=== PATIENT | female | born 1975 | race Caucasian/White ===

== ENCOUNTER 2023-03-10 15:04 | Outpatient (AMB) | payer OTHER, SELFPAY ==
--- NOTE | 2023-03-10 15:05 | A.OFFVIS_ITS ---
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 Pt was previously seen by Dr Alejandro Stinson and more recently by Dr Mcdonald. She had been having 4-5 migraine days per week, however this decreased to 1-2 migraine days per week after she underwent as series of lidocaine trigger point injections. Although the trigger point injections were helpful, they were painful and pt is hesitant to try naything potentially painful again at this point. She would like to discuss other tx options. Headache questionnaire: Age/time of onset? 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 Preceding causes? Initially no known causes. Previous work-up? None Typical headache characteristics: Prodrome symptoms? Unaware Aura? Twice has seen a vision snake. Location, quality, characteristics? Start as right neck pain or brain fog (now more left sided). Changes into throbbing/aching/stabbing pains- depending on severity. Pain intensity? without tx- severe Associated symptoms? photophobia, phonophobia, osmophobia, nausea, brain fog, ac tivity intolerance Focal weakness, Parethesias, Autonomic s/s? watery eyes Postdrome? unsure Triggers? certain perfumes, foods, alcohol, not sleeping enough, weather changes, too hot, hot flashes Any positional, valsalva, exertional, sexual activity triggers? none Menstrual triggers? right before but other times as well Time of day? morning 10-11am Duration? Always tx's- 1 to several hrs- depending on timing of taking her triptan. Frequency? Prior to the trigger point injections- 4-5 migraine dyas per week and now (4 weeks after trigger point injections)- 1-2 migraine days per week. How does headache impact your life? sometimes has to miss work. 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 Current acute medication use/interventions: Naratriptan 2.5mg- takes 2 hrs to take effect. Previous acute medication use: Different triptans- unsure which. Current preventative medication use: None Previous preventative medication use: Topamax- not tolerated. Amitriptyline- Ineffective. Aimovig- initially helpful but then ineffective. Mag and B2- ineffective. Non-pharmacological interventions: Rest. Allay lamp. Massage. History of musculoskeletal disorders or injury or concussion/head injury? Had a sledding accident in college- not tx'd or eval'd. History of mood disorder? anxiety- has lorazepam prn (uses rarely) History of sleep disorder? sleeps medium - HST through [place]. May wake up and cannot fall back asleep. Some snoring History of respiratory disease? none History of CV disease? HLD History of coagulopathy? none History of endocrine or metabolic disease? none History of seizure? none History of GI disorder? can be prone to constipation Other? Head tic- head moves side ways- noticed more after a parotidectomy (2019). She does tend to tilt her head to the left. Denies diplopia. Family planning? none Family history of migraine or other headache disorder? unaware [facility] (Updated 03/10/23 @ 15:11 by JOSE Leos) H/O parotidectomy Family History (Updated 03/10/23 @ 15:12 by JOSE Leos) Mother Hx of migraines Father Heart disease Social History Alcohol intake: never Patient Tobacco Use Status: Never used Tobacco Use of substances other than those prescribed or required for medical reasons: Yes Substance Use Type: Marijuana Review of Systems Const Details: See scanned ROS form Physical Exam Vital Signs: Last Vital Signs Pulse 59 03/10/23 15:13 BP 122/72 03/10/23 15:13 Pulse Ox 99 03/10/23 15:13 Oxygen Delivery Method Room Air 03/10/23 15:13 Const Orientation/consciousness: patient oriented x3 HEENT Other: No palpable scalp tenderness. Head: Yes normocephalic Resp Effort & Inspection: normal respiratory effort and able to speak in complete sentences Neuro Other: Left head tilt- able to correct. Bilateral cervical and posterior cervical tightness. General: patient oriented x3 Cranial nerves: Yes CN's II-XII intact bilaterally Cognition (Neuro): normal cognition Gait exam (Neuro): Normal gait present Motor exam (neuro): 5/5 motor strength present throughout Deep tendon reflexes (DTR's): Right triceps reflex intensity grade: 2+, Left triceps reflex intensity grade: 2+, Rt Biceps (C5, C6): 2+, Left biceps reflex intensity grade: 2+, Right brachioradialis reflex intensity grade: 2+, Left brachioradialis reflex intensity grade: 2+, Right patellar reflex intensity grade: 2+ and Left patellar reflex intensity grade: 2+ Coordination: [id number] test normal, tandem gait normal and Romberg test negative Pupils: Normal pupillary reactivity/response: bilateral Psych Appearance: grossly normal Mental Status: mental status grossly normal Speech and movement: Normal speech and movement present Affect: normal affect Attitude: cooperative Thought process: Normal thought process present Assessment & Plan Assessment & Plan (1) Migraine without aura: Code(s): G43.009 - Migraine without aura, not intractable, without status migrainosus (2) Cervical dystonia: Code(s): G24.3 - Spasmodic torticollis Plan Start PT for cervical dystonia/head tic s/s. Future considerations- cervical/head imaging, muscle relaxer, botox- note pt is very needle adverse at this time. For overall headache management: Discussed importance of good self-care, including but not limited to maintaining a healthy diet, adequate fluid intake, adequate sleep, and engaging in regular physical activity. For headache triggers: Track headaches, especially after any treatment regimen changes. Migraine [employer] is one of many headache tracking apps. Continue light sensitivity strategies, such as green light therapy. For acute headache treatment: Discussed importance of taking acute medications at the first sign of headache, however stressed importance of avoiding acute medication overuse (especially with combined headache medications). Trial Sumatriptan 100mg tab, 1/2 - 1 tab (50-100mg) at onset of headache, may repeat in 2 hours. Max of 2 tabs (200mg) per 24 hours. May adjunct with OTC Tylenol 650mg q 4 hours, Ibuprofen 600mg q 6 hours, or Naproxen 440mg q 12 hrs prn. Previous acute migraine medication trials: Naratriptan 2.5mg- takes 2 hrs to take effect. Acute migraine medication contraindications: None at this time For headache prevention medication: Consider non-pharmacological interventions, such as Cefaly neuromodulation devices Previous migraine prevention medication trials: Topamax- not tolerated. Amitriptyline- Ineffective. Aimovig- initially helpful but then ineffective. Mag and B2- ineffective. Migraine prevention medication contraindications: None absolute tx's at this time. However, pt is not interested in trying Nerivio. Future considerations- Botox- if pt's injection aversion subsides. Pt to follow-up in 3 months or sooner prn. Orders: Orders PT Evaluation and Treatment 03/10/23 G24.3 - Spasmodic torticollis, G43.009 - Migraine without aura, not intractable, without status migrainosus Medications: New sumatriptan succinate (0.5 - 1 x 100 mg) 50 - 100 mg orally at onset of headache, may repeat in 2 hrs PRN; max 2 tabs per day or 4 tabs/week (may take with Naproxen) 30 days 12 tabs 6RF migraine headache Coding Level of Care Code New Pt Level 4 (56210) Diagnoses Migraine without aura G43.009 Cervical dystonia G24.3
[2023-03-10 15:13] VITALS: BP 122/72; PULSE 59; O2SAT 99
== END 2023-03-10 16:44 | disposition home or self-care (01) ==
PROVIDERS: Visit Provider Nurse Practitioner Family
DX: G43.009 Migraine without aura, not intractable, without status migrainosus (principal); G24.3 Spasmodic torticollis
CPT/HCPCS: 99204

== ENCOUNTER → 2023-03-10 15:04 | Outpatient (BNVA) | payer OTHER, SELFPAY | PROVIDERS: Visit Provider Nurse Practitioner Family | DX: G24.3 Spasmodic torticollis (principal); G43.109 Migraine with aura, not intractable, without status migrainosus | CPT/HCPCS: 99202 ==

== ENCOUNTER 2023-08-18 08:45 | Outpatient (AMB) | payer OTHER, SELFPAY ==
--- NOTE | 2023-08-18 08:46 | A.OFFVIS_ITS ---
Intake Intake Visit Reasons: follow up-Confirmed Intake Note: Patient presents for follow up. I'm still having migraines Allergies nitrofurantoin [From Macrobid] Allergy (Unknown, Verified 08/18/23 08:51) Unknown Penicillins Allergy (Unknown, Verified 08/18/23 08:51) Unknown Medication List - Last Reconciled 08/18/23 by JEFFREY Das black cohosh 20 mg PO DAILY cholecalciferol (vitamin D3) 125 mcg PO DAILY naratriptan 2.5 mg PO Q4H PRN omega 5-okl-cul-fish oil 1,000 mg (120 mg-180 mg) (Fish Oil) 1 cap PO BID rizatriptan 10 mg PO Q2-4H PRN HPI HPI Comments History of Present Illness Details 47-year-old presents for f/u visit for f ollow-up of migraines and sleep apnea. Since the last visit, we received her home sleep study results from [facility] which revealed mild sleep apnea. Patient would like to try a mandibular device for treatment of sleep apnea. Does snore and has some sleep maintenance difficulties. Sleep can also be interrupted by hot flashes. Pt has completed trigger point injections at Dr. Mcdonald's office. Patient continues to have a high burden of migraine attacks per month. Patient would like to discuss options to reduce her migraine attack burden, as well as to reduce the impact of migraine attacks on overall quality of life- such as the need to limit out of home activities to reduce trigger risks. Since the last visit, tried sumatriptan, however it caused significant worsening nausea. Since has tried naratriptan, which is tolerated well but has slow onset of action and very effective. Then started rizatriptan, which is more effective that naratriptan, however not as effective if unable to take at the 1st sign. She is noticing less lateral head tilt and head/neck tics. Baseline headache characteristics: Aura- twice had had visual aura of seeing a snake. Migraine- starts as right or left neck pain or brain fog, which changes into throbbing/aching/stabbing pains, a/w photophobia, phonophobia, osmophobia, nausea, brain fog, activity intolerance, watery eyes Triggers include: certain perfumes, foods, alcohol, not sleeping enough, weather changes, too hot, hot flashes Current number of typical migraine days per month: 15-20 days per month Average painfulness of these migraines: mod-severe Current number of non-migraine headache days per month: n/a Average painfulness of these headaches: n/a PFSH Surgical History H/O parotidectomy Family History Mother Hx of migraines Father Heart disease Social History Alcohol intake: never Patient Tobacco Use Status: Never used Tobacco Substance Use Type: Marijuana Physical Exam Const General: cooperative and no acute distress Orientation/consciousness: patient oriented x3 Resp Effort & Inspection: normal respiratory effort and able to speak in complete sentences Neuro Other: Left head tilt- decreased today, still able to self-correct. Bilateral cervical and posterior cervical tightness. General: patient oriented x3 Cranial nerves: Yes CN's II-XII intact bilaterally Cognition (Neuro): normal cognition Psych Appearance: grossly normal Mental Status: mental status grossly normal Speech and movement: Clear speech present Affect: normal affect Attitude: cooperative Assessment & Plan Assessment & Plan (1) Chronic migraine without aura: Code(s): G43.709 - Chronic migraine without aura, not intractable, without status migrainosus (2) Mild obstructive sleep apnea: Comment: 02/19/2023, HST: AHI 5 per hour, O2 arabella 80%, average O2 sat 92%. 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 Reviewed simple strategies to address nocturnal hot flashes- cotton sheets/pajamas etc. For cervical dystonia/head tic s/s: Monitor clinically. Future considerations- cervical/head imaging, muscle relaxer, botox. ? For overall headache management: Continue to optimize good self-care, including but not limited to maintaining a healthy diet, adequate fluid intake, adequate sleep, and engaging in regular physical activity. Continue to track headaches. Continue light sensitivity strategies, such as green light therapy. ? For acute headache treatment: Continue rizatriptan 10 mg p.r.n. May use naratriptan p.r.n. Trial Nurtec ODT 75 mg q.d. as needed, as her triptans are not always fully effective. Acute migraine medication contraindications: Sumatriptan caused significant nausea. ? For headache prevention medication: Start propranolol 10 mg p.o. b.i.d.- this may also help hot flashes and anxiety/stress induced palpitations. Start Botox 155 units IM Q 12 weeks. Previous migraine prevention medication trials: Topamax- not tolerated. Amitriptyline- Ineffective. Aimovig- initially helpful but then ineffective. Mag and B2- ineffective. Migraine prevention medication contraindications: None absolute tx's at this time. However, pt is not interested in trying Nerivio. Future considerations- Botox- if pt's injection aversion subsides. ? Pt to follow-up in 3 months or sooner prn. [facility], insurance required a trial of Zolmitriptan as well. Pt did try Zomig x's 3- and it was not tolerated and ineffective. Medications: New propranolol 10 mg PO BID 60 tabs 3RF 30 days rimegepant (Nurtec ODT) 75 mg PO ONCE PRN 16 tabs 3RF migraine headache 30 days MDD 1 tab onabotulinumtoxinA (Botox) inject 155 units IM across forehead, scalp, and neck 200 units IM ONCE 1 ea 3RF 12 weeks G43.709 - Chronic migraine without aura, not intractable, without status migrainosus zolmitriptan (Zomig) do not exceed 2 doses per 24 hrs 5 mg PO Q2-4H PRN 12 tabs 1RF migraine headache 30 days Coding Level of Care Code Est Pt Level 4 (50488) Diagnoses Chronic migraine without aura G43.709 Mild obstructive sleep apnea G47.33 Cervical dystonia G24.3 Migraine with aura G43.109
== END 2023-08-18 09:46 | disposition home or self-care (01) ==
PROVIDERS: PCP Nurse Practitioner Primary Care; Visit Provider Nurse Practitioner Family
DX: G43.709 Chronic migraine without aura, not intractable, without status migrainosus (principal); G47.33 Obstructive sleep apnea (adult) (pediatric); G24.3 Spasmodic torticollis; G43.109 Migraine with aura, not intractable, without status migrainosus
CPT/HCPCS: 99214

== ENCOUNTER → 2023-08-18 08:45 | Outpatient (BNVA) | payer OTHER, SELFPAY | PROVIDERS: PCP Nurse Practitioner Primary Care; Visit Provider Nurse Practitioner Family ==

== ENCOUNTER 2023-10-07 08:50 | Outpatient (AMB) | payer OTHER, SELFPAY ==
--- NOTE | 2023-10-07 08:58 | A.OFFVIS_ITS ---
Intake Vital Signs 10/07/23 09:01 BP 146/82 H Blood Pressure Location Rt brachial Position Sitting Respiration 16 Pulse 73 Pulse Source Pulse Oximeter Pulse Oximetry (%) 99 Oxygen Delivery Method Room Air Intake Visit Reasons: Botox - first Intake Note: Pt presents for Botox injections. Target Protection Specialist Required: No Allergies nitrofurantoin [From Macrobid] Allergy (Unknown, Verified 10/07/23 08:59) Unknown Penicillins Allergy (Unknown, Verified 10/07/23 08:59) Unknown Medication List - Last Reconciled 10/07/23 by Goldie Corona MD black cohosh 20 mg PO DAILY cholecalciferol (vitamin D3) 125 mcg PO DAILY naratriptan 2.5 mg PO Q4H PRN omega 5-wht-ivl-fish oil 1,000 mg (120 mg-180 mg) (Fish Oil) 1 cap PO BID onabotulinumtoxinA (Botox) 200 units IM ONCE 12 weeks rimegepant (Nurtec ODT) 75 mg PO ONCE PRN 30 days MDD 1 tab rizatriptan 10 mg PO Q2-4H PRN HPI HPI Comments History of Present Illness Details ? 47y/o female comes for treatment of migraines with botox. ??? Most frequent reported adverse reactions following injection of botox for chronic migraine include neck pain (9%), headache(5%), eyelid ptosis(4%), migraine(4%), muscular weakness(4%), musculuskeletal stiffness(4%), bronchitis(3%), injection site pain (3%), musculoskeletal pain(3%), myalgia(3%), facial paresis(2%), HTN(2%) and muscle spasms(2%) were discussed in detail. ??? Botulinum toxin typeA 200units Lot no [id number] expiration November 2025 was diluted with 4 cc of normal saline . ??? Muscles injected- ??? Frontalis 4 sites ??? Procerus 1 site ??? Scarifier Operator- 2 sites ??? Temporalis- 8 sites ? Cervical paraspinals- 4 sites- 5 units each ??? Trapezius- 6 sites- 10 units each ??? Right splenius 40 units ??? Total use- 195units ??? [facility] H/O parotidectomy Family History Mother Hx of migraines Father Heart disease Social History Alcohol intake: never Patient Tobacco Use Status: Never used Tobacco Substance Use Type: Marijuana Physical Exam Vital Signs: Last Vital Signs Pulse 73 10/07/23 09:01 Resp 16 10/07/23 09:01 BP 146/82 H 10/07/23 09:01 Pulse Ox 99 10/07/23 09:01 Oxygen Delivery Method Room Air 10/07/23 09:01 Const General: cooperative and no acute distress Orientation/consciousness: patient oriented x3 Resp Effort & Inspection: normal respiratory effort and able to speak in complete sentences Neuro Other: Left head tilt- decreased today, still able to self-correct. Bilateral cervical and posterior cervical tightness. General: patient oriented x3 Cranial nerves: Yes CN's II-XII intact bilaterally Cognition (Neuro): normal cognition Psych Appearance: grossly normal Mental Status: mental status grossly normal Speech and movement: Clear speech present Affect: normal affect Attitude: cooperative Office Procedures Botulinum toxin Injection 92207 - Migraine Procedure code (CPT) selection complete Office Meds onabotulinumtoxinA 200 unit solution for injection Performing Provider: Goldie Corona MD Performing Location: [facility] Administered by: Goldie Corona MD on 10/07/23 11:53 Dose Route Admin Location Dispensed Lot Number Expiration Date [facility] [employer] 195 unit IM 200 units [id number] 11/18/25 0627-3632-16 [employer]/BOTOX Comments: see hpi Assessment & Plan Assessment & Plan (1) Chronic migraine without aura: Code(s): G43.709 - Chronic migraine without aura, not intractable, without status migrainosus (2) Cervical dystonia: 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
[2023-10-07 09:01] VITALS: BP 146/82; PULSE 73; RESP 16; O2SAT 99
== END 2023-10-07 09:24 | disposition home or self-care (01) ==
PROVIDERS: PCP Nurse Practitioner Primary Care; Visit Provider Psychiatry & Neurology Neurology
DX: G43.709 Chronic migraine without aura, not intractable, without status migrainosus (principal)
CPT/HCPCS: 64615

== ENCOUNTER → 2023-10-07 08:50 | Outpatient (BNVA) | payer OTHER, SELFPAY | PROVIDERS: PCP Nurse Practitioner Primary Care; Visit Provider Psychiatry & Neurology Neurology | DX: G24.3 Spasmodic torticollis (principal); G43.709 Chronic migraine without aura, not intractable, without status migrainosus; Z79.899 Other long term (current) drug therapy | CPT/HCPCS: 64615; 99211; J0585 ==

== ENCOUNTER 2023-11-17 10:22 | Outpatient (AMB) | payer OTHER, SELFPAY ==
--- NOTE | 2023-11-17 10:26 | MHC.OFFVIS ---
Vital Signs 11/17/23 10:32 BP 106/82 Blood Pressure Location Rt brachial Position Sitting Pulse 78 Pulse Source Pulse Oximeter Pulse Oximetry (%) 97 Oxygen Delivery Method Room Air Intake Visit Reasons: 3 mo f/u - LVM w/add Intake Note: Patient presents for 3 month follow up. Allergies nitrofurantoin [From Macrobid] Allergy (Unknown, Verified 11/17/23 10:31) Unknown Penicillins Allergy (Unknown, Verified 11/17/23 10:31) Unknown Medication List - Last Reconciled 11/17/23 by JEFFREY aDs black cohosh 20 mg PO DAILY cholecalciferol (vitamin D3) 125 mcg PO DAILY naratriptan 2.5 mg PO Q4H PRN omega 5-emd-ayz-fish oil 1,000 mg (120 mg-180 mg) (Fish Oil) 1 cap PO BID onabotulinumtoxinA (Botox) 200 units IM ONCE 12 weeks rimegepant (Nurtec ODT) 75 mg PO ONCE PRN 30 days MDD 1 tab rizatriptan 10 mg PO Q2-4H PRN HPI Comments Details: 48-yr-old female presents for f/u visit. Pt denies any significant interval medical changes. Pt notes increase personal life/stress. She had been having a sustained skin rash- hives. She now believes this was a reaction to dissolvable sutures in her shoulder s/p lipoma removal. She has rec'd mandibular device, but has not tried it. She is nervous about trying to set it up and use it at night. In past 3 months, she had 7-9 migraine days. She started Botox for migraine, which she tolerated well. States it was better tolerated than the trigger point injections. She likes the Nurtec, but it can take 2 hrs to take effect. If she feels a headache coming on, and takes it at very 1st sign. Has not tried taking w/ her triptan. She is consciously trying to maintain neutral head position. PFSH Surgical History H/O parotidectomy Family History Mother Hx of migraines Father Heart disease Social History (Reviewed 11/17/23 @ 10:32 by LENNY Leos Alcohol intake: never Patient Tobacco Use Status: Never used Tobacco Substance Use Type: Marijuana Physical Exam Vital Signs: Last Vital Signs Pulse 78 11/17/23 10:32 BP 106/82 11/17/23 10:32 Pulse Ox 97 11/17/23 10:32 Oxygen Delivery Method Room Air 11/17/23 10:32 Const General: cooperative and no acute distress Orientation/consciousness: patient oriented x3 Resp Effort & Inspection: normal respiratory effort and able to speak in complete sentences Neuro General: patient oriented x3 Cranial nerves: Yes CN's II-XII intact bilaterally Cognition (Neuro): normal cognition Psych Appearance: grossly normal Mental Status: mental status grossly normal Speech and movement: Normal speech and movement present Affect: normal affect Attitude: cooperative Assessment & Plan Assessment & Plan (1) Chronic migraine without aura: Code(s): G43.709 - Chronic migraine without aura, not intractable, without status migrainosus Category: Medical (2) Migraine with aura: Comment: Twice has had aura Code(s): G43.109 - Migraine with aura, not intractable, without status migrainosus Category: Medical (3) Mild obstructive sleep apnea: Comment: 02/19/2023, HST: AHI 5 per hour, O2 arabella 80%, average O2 sat 92%. 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 Try using it during waking hrs to assess tolerance. ? For cervical dystonia/head tic s/s: Improved. Monitor clinically. Future considerations- cervical/head imaging, muscle relaxer, botox. ? For overall headache management: Continue to optimize good self-care, including but not limited to maintaining a healthy diet, adequate fluid intake, adequate sleep, and engaging in regular physical activity. Continue to track headaches. Continue light sensitivity strategies, such as green light therapy. Consider trying neuromodulation devices- Nerivio. Warming facial migraine tx device.? For acute headache treatment: Continue rizatriptan 10 mg p.r.n. May use naratriptan p.r.n. Continue Nurtec ODT 75 mg q.d. as needed, as her triptans are not always fully effective. May take w/ triptan or NSAID. Acute migraine medication contraindications: Sumatriptan caused significant nausea. Zomig- ineffective and not tolerated. ? For headache prevention medication: Again, start propranolol 10 mg p.o. b.i.d.- this may also help hot flashes and anxiety/stress induced palpitations. Continue Botox 155 units IM Q 12 weeks, as pt tolertaed well and has had beneficial effect. Previous migraine prevention medication trials: Topamax- not tolerated. Amitriptyline- Ineffective. Aimovig- initially helpful but then ineffective. Mag and B2- ineffective. Migraine prevention medication contraindications: None absolute tx's at this time. Future considerations- Botox- if pt's injection aversion subsides. ? Pt to follow-up in 6 months or sooner prn. ? Coding Level of Care Code Est Pt Level 4 (42515) Diagnoses Chronic migraine without aura G43.709 Migraine with aura G43.109 Mild obstructive sleep apnea G47.33 Cervical dystonia G24.3
[2023-11-17 10:32] VITALS: BP 106/82; PULSE 78; O2SAT 97
== END 2023-11-17 11:49 | disposition home or self-care (01) ==
PROVIDERS: PCP Nurse Practitioner Primary Care; Visit Provider Nurse Practitioner Family
DX: G43.709 Chronic migraine without aura, not intractable, without status migrainosus (principal); G43.109 Migraine with aura, not intractable, without status migrainosus; G47.33 Obstructive sleep apnea (adult) (pediatric); G24.3 Spasmodic torticollis
CPT/HCPCS: 99214

== ENCOUNTER → 2023-11-17 10:22 | Outpatient (BNVA) | payer OTHER, SELFPAY | PROVIDERS: PCP Nurse Practitioner Primary Care; Visit Provider Nurse Practitioner Family ==

== ENCOUNTER 2024-01-08 09:26 | Outpatient (AMB) | payer OTHER, SELFPAY ==
--- NOTE | 2024-01-08 09:54 | A.OFFVIS_ITS ---
Vital Signs 01/08/24 09:55 Height 5 ft 3.5 in Weight 198 lb BMI 34.5 BP 106/62 Blood Pressure Location Rt brachial Position Sitting Respiration 16 Pulse 68 Pulse Source Palpation Intake Visit Reasons: BOTOX - LVM w/add Intake Note: Pt presents to the office for Botox injections. Nurse School Required: No Allergies nitrofurantoin [From Macrobid] Allergy (Unknown, Verified 01/08/24 09:55) Unknown Penicillins Allergy (Unknown, Verified 01/08/24 09:55) Unknown Medication List - Last Reconciled 01/08/24 by Goldie Corona MD black cohosh 20 mg PO DAILY cholecalciferol (vitamin D3) 125 mcg PO DAILY naratriptan 2.5 mg PO Q4H PRN 30 days omega 7-ogh-ehl-fish oil 1,000 mg (120 mg-180 mg) (Fish Oil) 1 cap PO BID onabotulinumtoxinA (Botox) 200 units IM ONCE 12 weeks rimegepant (Nurtec ODT) 75 mg PO ONCE PRN 30 days MDD 1 tab rizatriptan 10 mg PO Q2-4H PRN HPI Comments Details: ? 47y/o female comes for treatment of migraines with botox. ??? Most frequent reported adverse reactions following injection of botox for chronic migraine include neck pain (9%), headache(5%), eyelid ptosis(4%), migraine(4%), muscular weakness(4%), musculuskeletal stiffness(4%), bronchitis(3%), injection site pain (3%), musculoskeletal pain(3%), myalgia(3%), facial paresis(2%), HTN(2%) and muscle spasms(2%) were discussed in detail. ??? Botulinum toxin typeA 200units Lot no [id number] expiration January 2026 was diluted with 4 cc of normal saline . ??? Muscles injected- ??? Frontalis 4 sites ??? Procerus 1 site ??? Test Inspection Engineer- 2 sites ??? Temporalis- 8 sites ? Cervical paraspinals- 4 sites- 5 units each ??? Trapezius- 6 sites- 10 units each ??? Right splenius 40 units ??? Total use- 195units ??? Discarded-5units PFSH Surgical History H/O parotidectomy Family History Mother Hx of migraines Father Heart disease Social History Alcohol intake: never Patient Tobacco Use Status: Never used Tobacco Substance Use Type: Marijuana Physical Exam Vital Signs: Last Vital Signs Pulse 68 01/08/24 09:55 Resp 16 01/08/24 09:55 BP 106/62 01/08/24 09:55 BMI result Body Mass Index 34.5 Const General: cooperative and no acute distress Orientation/consciousness: patient oriented x3 Resp Effort & Inspection: normal respiratory effort and able to speak in complete sentences Neuro General: patient oriented x3 Cranial nerves: Yes CN's II-XII intact bilaterally Cognition (Neuro): normal cognition Psych Appearance: grossly normal Mental Status: mental status grossly normal Speech and movement: Normal speech and movement present Affect: normal affect Attitude: cooperative Office Procedures Botulinum toxin Injection 64103 - Migraine Procedure code (CPT) selection complete Office Meds onabotulinumtoxinA 200 unit solution for injection Performing Provider: Goldie Corona MD Performing Location: [facility] [place] [facility] Administered by: Goldie Corona MD on 01/08/24 10:21 Dose Route Admin Location Dispensed Lot Number Expiration Date [facility] Injection Molder 195 unit subcut 200 units [id number] 01/18/26 1019-3140-52 ALLERGAN/BOTOX Comments: see HPI Assessment & Plan Assessment & Plan (1) Chronic migraine without aura: Code(s): G43.709 - Chronic migraine without aura, not intractable, without status migrainosus Category: Medical (2) Cervical dystonia: Code(s): G24.3 - Spasmodic torticollis Category: Medical Plan Patient tolerated the procedure well she will call with any side effects Orders: Orders AMB Botulinum toxin Injection Today G43.709 - Chronic migraine without aura, not intractable, without status migrainosus Coding Level of Care Code Est Pt Level 1 (70092) Diagnoses Chronic migraine without aura G43.709 Cervical dystonia G24.3 CPT Codes Botox Injection - Botox 3: 56186 - Migraine ([id number])
[2024-01-08 09:55] VITALS: BP 106/62; PULSE 68; RESP 16; BMI 34.5
== END 2024-01-08 10:25 | disposition home or self-care (01) ==
PROVIDERS: PCP Nurse Practitioner Primary Care; Visit Provider Psychiatry & Neurology Neurology
DX: G43.709 Chronic migraine without aura, not intractable, without status migrainosus (principal)
CPT/HCPCS: 64615

== ENCOUNTER → 2024-01-08 09:26 | Outpatient (BNVA) | payer OTHER, SELFPAY | PROVIDERS: PCP Nurse Practitioner Primary Care; Visit Provider Psychiatry & Neurology Neurology | DX: G43.709 Chronic migraine without aura, not intractable, without status migrainosus (principal); G24.3 Spasmodic torticollis | CPT/HCPCS: 64615; 99211; J0585 ==

== ENCOUNTER 2024-04-20 12:54 | Outpatient (AMB) | payer OTHER, SELFPAY ==
[2024-04-20 13:01] VITALS: BP 110/60; PULSE 76; RESP 16
--- NOTE | 2024-04-20 13:01 | MHC.OFFVIS ---
Vital Signs 04/20/24 13:01 Height 5 ft 3.5 in BP 110/60 Blood Pressure Location Rt brachial Position Sitting Respiration 16 Pulse 76 Pulse Source Palpation Intake Visit Reasons: BOTOX Intake Note: Pt presents to the office for Botox injections for cervical dystonia. 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 Apprentice Required: No Allergies nitrofurantoin [From Macrobid] Allergy (Unknown, Verified 04/20/24 13:01) Unknown Penicillins Allergy (Unknown, Verified 04/20/24 13:01) Unknown Medication List - Last Reconciled 04/20/24 by Goldie Corona MD atorvastatin 40 mg PO BEDTIME [BI-EST HRT PO] black cohosh 20 mg PO DAILY cholecalciferol (vitamin D3) 125 mcg PO DAILY mecobalamin (vitamin B12) mcg PO DAILY PRN melatonin 3 mg PO BEDTIME PRN naratriptan 2.5 mg PO Q4H PRN 30 days onabotulinumtoxinA (Botox) 200 units IM ONCE 12 weeks propranolol 10 mg PO BID 30 days rimegepant (Nurtec ODT) 75 mg PO Q OTHER DAY 30 days MDD 1 tab HPI Comments Details: ? 47y/o female comes for treatment of migraines with botox. Patient noticed a significant decrease in her intensity and frequency of migraines with botox ??? Most frequent reported adverse reactions following injection of botox for chronic migraine include neck pain (9%), headache(5%), eyelid ptosis(4%), migraine(4%), muscular weakness(4%), musculuskeletal stiffness(4%), bronchitis(3%), injection site pain (3%), musculoskeletal pain(3%), myalgia(3%), facial paresis(2%), HTN(2%) and muscle spasms(2%) were discussed in detail. ??? Botulinum toxin typeA 200units Lot no [id number] expiration Jun 2026 was diluted with 4 cc of normal saline . ??? Muscles injected- ??? Frontalis 4 sites ??? Procerus 1 site ??? Airbrush Artist Technical- 2 sites ??? Temporalis- 8 sites ? Cervical paraspinals- 4 sites- 5 units each ??? Trapezius- 6 sites- 10 units each ??? Right splenius 40 units ??? Total use- 195units ??? Discarded-5units PFSH Surgical History H/O parotidectomy Family History Mother Hx of migraines Father Heart disease Social History Alcohol intake: never Patient Tobacco Use Status: Never used Tobacco Substance Use Type: Marijuana Physical Exam Vital Signs: Last Vital Signs Pulse 76 04/20/24 13:01 Resp 16 04/20/24 13:01 BP 110/60 04/20/24 13:01 Const General: cooperative and no acute distress Orientation/consciousness: patient oriented x3 Resp Effort & Inspection: normal respiratory effort and able to speak in complete sentences Neuro General: patient oriented x3 Cranial nerves: Yes CN's II-XII intact bilaterally Cognition (Neuro): normal cognition Psych Appearance: grossly normal Mental Status: mental status grossly normal Speech and movement: Normal speech and movement present Affect: normal affect Attitude: cooperative Office Procedures Botulinum toxin Injection 40138 - Migraine Procedure code (CPT) selection complete Office Meds onabotulinumtoxinA 200 unit solution for injection Performing Provider: Goldie Corona MD [place] [facility] [place] [facility] Administered by: Goldie Corona MD on 04/20/24 13:56 Dose Route Admin Location Dispensed Lot Number Expiration Date [facility] Information Systems Administrator 195 unit subcut 200 units [id number] 06/20/26 8644-3363-08 ALLERGAN/BOTOX Comments: see HPI Assessment & Plan Assessment & Plan (1) Chronic migraine without aura: Code(s): G43.709 - Chronic migraine without aura, not intractable, without status migrainosus Category: Medical Qualifiers: Status migrainosus presence: without status migrainosus Intractability: intractable Qualified Code(s): G43.719 - Chronic migraine without aura, intractable, without status migrainosus (2) Cervical dystonia: Code(s): G24.3 - Spasmodic torticollis Category: Medical Plan Patient tolerated the procedure well she will call with any side effects Increase propranolol 20mg bid Orders: Orders AMB Botulinum toxin Injection Today G43.719 - Chronic migraine without aura, intractable, without status migrainosus Medications: New onabotulinumtoxinA 200 units subcut ONCE 1 ea 0RF migraine G43.719 - Chronic migraine without aura, intractable, without status migrainosus Changed From propranolol 10 mg PO BID 30 days 60 tabs 3RF To propranolol 20 mg (2 x 10 mg) PO BID 30 days 120 tabs 3RF Coding Level of Care Code Est Pt Level 1 (94520) Diagnoses Intractable chronic migraine without aura and without status migrainosus G43.719 Status migrainosus presence: without status migrainosus Intractability: intractable Cervical dystonia G24.3 CPT Codes Botox Injection - Botox 3: 72100 - Migraine ([id number])
== END 2024-04-20 13:47 | disposition home or self-care (01) ==
PROVIDERS: PCP Nurse Practitioner Primary Care; Visit Provider Psychiatry & Neurology Neurology
DX: G43.719 Chronic migraine without aura, intractable, without status migrainosus (principal)
CPT/HCPCS: 64615

== ENCOUNTER → 2024-04-20 12:54 | Outpatient (BNVA) | payer OTHER, SELFPAY | PROVIDERS: PCP Nurse Practitioner Primary Care; Visit Provider Psychiatry & Neurology Neurology | DX: G43.719 Chronic migraine without aura, intractable, without status migrainosus (principal); G24.3 Spasmodic torticollis | CPT/HCPCS: 64615; 99211; J0585 ==

== ENCOUNTER 2024-05-26 15:01 | Outpatient (AMB) | payer OTHER, SELFPAY ==
--- NOTE | 2024-05-26 14:55 | A.OFFVIS_ITS ---
Vital Signs 05/26/24 14:59 Height 5 ft 4 in Intake Visit Reasons: Follow Up Night Coordinator Required: No Accompanied by: Self / Same As Patient Allergies nitrofurantoin [From Macrobid] Allergy (Unknown, Verified 05/26/24 14:55) Unknown Penicillins Allergy (Unknown, Verified 05/26/24 14:55) Unknown Medication List - Last Reconciled 05/26/24 by JEFFREY Das [Bioidentical HRT, pregnenolone (2.5mg), progesterone (20 mg), testosterone (0.5mg) PO .DAILY] atorvastatin 40 mg PO BEDTIME cholecalciferol (vitamin D3) 125 mcg PO DAILY erenumab-aooe (Aimovig Autoinjector) 140 mg subcut ONCE 30 days mecobalamin (vitamin B12) mcg PO DAILY melatonin 3 mg PO BEDTIME naratriptan 2.5 mg PO Q4H PRN 30 days onabotulinumtoxinA (Botox) 200 units IM ONCE 12 weeks propranolol 20 mg (2 x 10 mg) PO BID 30 days rimegepant (Nurtec ODT) 75 mg PO Q OTHER DAY PRN HPI Comments Details: 48-yr-old female presents for f/u televisit of migraine and GREG. Pt has completed 3 cycles of botox for cervical dystonia and migraine. She reports she had increased migraines over the summer, especially triggered by the humidity and heat, and felt quite miserable. At her last Botox appt, her propranolol was increased from 10mg bid to 20mg bid. Nurtec prn is helpful- though receives only a small supply per month. She is curious about other measures to help her reduce her migraine burden. She reports the following monthly migraine day: November- had a few migraines. January- Mar- , then at the end of Apr, had 6 days without a migraine. She has not tolerated the mandibular device for tx of GREG. PFSH Surgical History H/O parotidectomy Family History Mother Hx of migraines Father Heart disease Social History Alcohol intake: never Patient Tobacco Use Status: Never used Tobacco Substance Use Type: Marijuana Physical Exam Const General: cooperative and no acute distress Orientation/consciousness: patient oriented x3 Resp Effort & Inspection: normal respiratory effort and able to speak in complete sentences Neuro General: patient oriented x3 Cranial nerves: Yes CN's II-XII intact bilaterally Cognition (Neuro): normal cognition Psych Appearance: grossly normal Mental Status: mental status grossly normal Speech and movement: Normal speech and movement present Affect: normal affect Attitude: cooperative Telehealth Telehealth Telehealth Platform: [employer] Location of provider rendering services: practice address Location of patient: address on file Patient Identification confirmed using: Name, : Yes Telehealth method: video Patient verbally consented to treatment: Yes Patient verbally consented to billing insurance company: Yes Patient informed of any privacy concerns related to visit: Yes Minutes spent on Phone/Video with Pt.: 45 Assessment & Plan Assessment & Plan (1) Chronic migraine without aura: Code(s): G43.709 - Chronic migraine without aura, not intractable, without status migrainosus Category: Medical Qualifiers: Status migrainosus presence: without status migrainosus Intractability: intractable Qualified Code(s): G43.719 - Chronic migraine without aura, intractable, without status migrainosus (2) Migraine with aura: Comment: Twice has had aura Code(s): G43.109 - Migraine with aura, not intractable, without status migrainosus Category: Medical (3) Mild obstructive sleep apnea: Comment: 02/19/2023, HST: AHI 5 per hour, O2 arabella 80%, average O2 sat 92%. Code(s): G47.33 - Obstructive sleep apnea (adult) (pediatric) Category: Medical (4) Cervical dystonia: Code(s): G24.3 - Spasmodic torticollis Category: Medical Plan For GREG and sleep difficulties: Pt not tolerating Somnoguard- will monitor clinically for now as sleep apnea is mild. ? For cervical dystonia/head tic s/s: Improved. Continue Botox q 12 weeks. 0 ? For overall headache management: Continue to optimize good self-care, including but not limited to maintaining a healthy diet, adequate fluid intake, adequate sleep, and engaging in regular physical activity. Continue to track headaches. Continue light sensitivity strategies, such as green light therapy. Reviewed neuromodulation devices- pt will review and let us know if she is inter ested in trying. She will also check w/ her insurance to see if they are covered. Futiure considerations- complimentary integrative tx's. For acute headache treatment: Continue naratriptan p.r.n. Continue Nurtec ODT 75 mg q.d. as needed, as her triptans are not always fully effective. May take w/ triptan or NSAID. Acute migraine medication contraindications: Sumatriptan caused significant nausea. Zomig- ineffective and not tolerated. ? For headache prevention medication: Continue Propranolol 20 mg p.o. b.i.d.- would not increase further d/t BP low- norm. Continue Botox 155 units IM Q 12 weeks, as pt tolerated well and has had beneficial effect. Restart Aimovig 140mg sc q month, as it did previously have partial efficacy w/o adverse effect. Likely pt will have further reduction in migraine burden with combination of Botox and Aimovig. Previous migraine prevention medication trials: Topamax- not tolerated. Amitriptyline- Ineffective. Aimovig- initially helpful but then effect waned. Mag and B2- ineffective. Migraine prevention medication contraindications: None absolute tx's at this time. ? Pt to follow-up in 6 months or sooner prn. ? Medications: New erenumab-aooe (Aimovig Autoinjector) 140 mg subcut ONCE 30 days 1 mL 6RF Changed From rimegepant (Nurtec ODT) 75 mg PO Q OTHER DAY 30 days 15 tabs 6RF MDD 1 tab G43.009 - Migraine without aura, not intractable, without status migrainosus To rimegepant (Nurtec ODT) 75 mg PO Q OTHER DAY PRN G43.009 - Migraine without aura, not intractable, without status migrainosus Coding Level of Care Code Est Pt Level 4 (86453) Diagnoses Intractable chronic migraine without aura and without status migrainosus G43.719 Status migrainosus presence: without status migrainosus Intractability: intractable Migraine with aura G43.109 Mild obstructive sleep apnea G47.33 Cervical dystonia G24.3
== END 2024-05-26 16:11 | disposition home or self-care (01) ==
LOC: HO.HSMS 15:01
PROVIDERS: PCP Nurse Practitioner Primary Care; Visit Provider Nurse Practitioner Family
DX: G43.719 Chronic migraine without aura, intractable, without status migrainosus (principal); G43.109 Migraine with aura, not intractable, without status migrainosus; G47.33 Obstructive sleep apnea (adult) (pediatric); G24.3 Spasmodic torticollis
CPT/HCPCS: 99214

== ENCOUNTER → 2024-05-26 15:01 | Outpatient (BNVA) | payer OTHER, SELFPAY | PROVIDERS: PCP Nurse Practitioner Primary Care; Visit Provider Nurse Practitioner Family | DX: G43.009 Migraine without aura, not intractable, without status migrainosus (principal) ==

== ENCOUNTER 2024-07-22 10:36 | Outpatient (AMB) | payer OTHER, SELFPAY ==
--- NOTE | 2024-07-22 10:47 | A.OFFVIS_ITS ---
Vital Signs 07/22/24 10:47 Height 5 ft 4 in Intake Visit Reasons: BOTOX Intake Note: Patient presents for botox Allergies nitrofurantoin [From Macrobid] Allergy (Unknown, Verified 07/22/24 10:47) Unknown Penicillins Allergy (Unknown, Verified 07/22/24 10:47) Unknown Medication List - Last Reconciled 07/22/24 by Goldie Corona MD [Bioidentical HRT, pregnenolone (2.5mg), progesterone (20 mg), testosterone (0.5mg) PO .DAILY] atorvastatin 40 mg PO BEDTIME cholecalciferol (vitamin D3) 125 mcg PO DAILY erenumab-aooe (Aimovig Autoinjector) 140 mg subcut ONCE 30 days mecobalamin (vitamin B12) mcg PO DAILY melatonin 3 mg PO BEDTIME naratriptan 2.5 mg PO Q4H PRN 30 days onabotulinumtoxinA (Botox) 200 units IM ONCE 12 weeks propranolol 20 mg (2 x 10 mg) PO BID 30 days rimegepant (Nurtec ODT) 75 mg PO Q OTHER DAY PRN HPI Comments Details: ? 48y/o female comes for treatment of migraines with botox.This is her 4 th botox treatment. she has 5-14 migraine days a month. Patient noticed a significant decrease in her intensity and frequency of migraines with botox ??? Most frequent reported adverse reactions following injection of botox for chronic migraine include neck pain (9%), headache(5%), eyelid ptosis(4%), migraine(4%), muscular weakness(4%), musculuskeletal stiffness(4%), bronchitis(3%), injection site pain (3%), musculoskeletal pain(3%), myalgia(3%), facial paresis(2%), HTN(2%) and muscle spasms(2%) were discussed in detail. ??? Botulinum toxin typeA 200units Lot no [id number] expiration Aug 2026 was diluted with 4 cc of normal saline . ??? Muscles injected- ??? Frontalis 4 sites ??? Procerus 1 site ??? Education Program Coordinator- 2 sites ??? Temporalis- 8 sites ? Cervical paraspinals- 4 sites- 5 units each ??? Trapezius- 6 sites- 10 units each ??? Right splenius 40 units ??? Total use- 195units ??? Discarded-5units PFSH Surgical History H/O parotidectomy Family History Mother Hx of migraines Father Heart disease Social History Alcohol intake: never Patient Tobacco Use Status: Never used Tobacco Substance Use Type: Marijuana Physical Exam Const General: cooperative and no acute distress Orientation/consciousness: patient oriented x3 Resp Effort & Inspection: normal respiratory effort and able to speak in complete sentences Neuro General: patient oriented x3 Cranial nerves: Yes CN's II-XII intact bilaterally Cognition (Neuro): normal cognition Psych Appearance: grossly normal Mental Status: mental status grossly normal Speech and movement: Normal speech and movement present Affect: normal affect Attitude: cooperative Office Procedures Botulinum toxin Injection 81562 - Migraine Procedure code (CPT) selection complete Office Meds onabotulinumtoxinA 200 unit solution for injection Performing Provider: Goldie Corona MD [place] [facility] [place] [facility] Administered by: Goldie Corona MD on 07/22/24 15:33 Dose Route Admin Location Dispensed Lot Number Expiration Date 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 - Spasmodic torticollis Category: Medical Plan Patient tolerated the procedure well she will call with any side effects Orders: Orders AMB Botulinum toxin Injection Today G43.719 - Chronic migraine without aura, intractable, without status migrainosus Medications: New onabotulinumtoxinA 200 units subcut ONCE 1 ea 0RF migraine headache G43.719 - Chronic migraine without aura, intractable, without status migrainosus Coding Level of Care Code Est Pt Level 1 (04649) Diagnoses Intractable chronic migraine without aura and without status migrainosus G43.719 Status migrainosus presence: without status migrainosus Intractability: intractable Cervical dystonia G24.3 CPT Codes Botox Injection - Botox 3: 17807 - Migraine ([id number])
== END 2024-07-22 11:03 | disposition home or self-care (01) ==
PROVIDERS: PCP Nurse Practitioner Primary Care; Visit Provider Psychiatry & Neurology Neurology
DX: G43.719 Chronic migraine without aura, intractable, without status migrainosus (principal)
CPT/HCPCS: 64615

== ENCOUNTER → 2024-07-22 10:36 | Outpatient (BNVA) | payer OTHER, SELFPAY | PROVIDERS: PCP Nurse Practitioner Primary Care; Visit Provider Psychiatry & Neurology Neurology | DX: G43.719 Chronic migraine without aura, intractable, without status migrainosus (principal); G24.3 Spasmodic torticollis | CPT/HCPCS: 64615; 99211; J0585 ==

== ENCOUNTER 2024-10-13 10:38 | Outpatient (AMB) | payer OTHER, SELFPAY ==
--- NOTE | 2024-10-13 09:52 | A.OFFVIS_ITS ---
Intake Visit Reasons: Follow up Intake Note: Patient presents follow up migraine medication [facility] Tender Required: No Accompanied by: Self / Same As Patient Allergies nitrofurantoin [From Macrobid] Allergy (Unknown, Verified 10/13/24 09:58) Unknown Penicillins Allergy (Unknown, Verified 10/13/24 09:58) Unknown HPI Comments Details: 48-yr-old female presents for f/u televisit for migraine and GREG. Pt denies any significant interval changes. Q.day, patient would like to discuss strategies to optimize her migraine when regimen, did discuss if she should continue her current migraine treatment strategies. She is not sure how effective Botox has been for her overall, and notes that in general she does not like the Botox procedure were generally treatments that induce even temporary discomfort. Prior to starting botox, she had several courses of trigger point injections in traps/shoulders/occipital scalp regions. At this point, she has completed 4 cycles of Botox. She has tried Cefaly- not sure if it helpful- not yet using daily- some days the linh crashes and she cannot use it. It also causes some discomfort during use. Using Nurtec or Naratriptan- as each works better for certain symptoms. She is cautious with as needed migraine treatments due to worry for rebound headache risk. She does not recall her previous migraine preventive treatments clearly at this time. She continues to track her monthly migraine days: Migraine days (counted as days taken tx, not prodrome or postdrome days). Jul 14 days Aug 9 days Up to today in September 10 days. He has not noticed any tic like movements of her head and neck recently. Previous follow-up HPI, 05/26/2024: Pt has completed 3 cycles of botox for cervical dystonia and migraine. She reports she had increased migraines over the summer, especially triggered by the humidity and heat, and felt quite miserable. At her last Botox appt, her propranolol was increased from 10mg bid to 20mg bid. Nurtec prn is helpful- though receives only a small supply per month. She is curious about other measures to help her reduce her migraine burden. She reports the following monthly migraine day: November- had a few migraines. January- Mar- , then at the end of Apr, had 6 days without a migraine. She has not tolerated the mandibular device for tx of GREG. PFSH Surgical History H/O parotidectomy Family History Mother Hx of migraines Father Heart disease Social History Alcohol intake: never Patient Tobacco Use Status: Never used Tobacco Substance Use Type: Marijuana Physical Exam Const General: cooperative and no acute distress Orientation/consciousness: patient oriented x3 Resp Effort & Inspection: normal respiratory effort and able to speak in complete sentences Neuro General: patient oriented x3 Cognition (Neuro): normal cognition Psych Appearance: grossly normal Mental Status: mental status grossly normal Speech and movement: Normal speech and movement present Affect: normal affect Attitude: cooperative Telehealth Telehealth Telehealth Platform: [facility] Location of provider rendering services: practice address Location of patient: address on file Patient Identification confirmed using: Name, : Yes Telehealth method: video Patient verbally consented to treatment: Yes Patient verbally consented to billing insurance company: Yes Patient informed of any privacy concerns related to visit: Yes Minutes spent on Phone/Video with Pt.: 30 Assessment & Plan Assessment & Plan (1) Chronic migraine without aura: Code(s): G43.709 - Chronic migraine without aura, not intractable, without status migrainosus Category: Medical Qualifiers: Intractability: intractable Status migrainosus presence: without status migrainosus Qualified Code(s): G43.719 - Chronic migraine without aura, intractable, without status migrainosus (2) Migraine with aura: Comment: Twice has had aura Code(s): G43.109 - Migraine with aura, not intractable, without status migrainosus Category: Medical (3) Mild obstructive sleep apnea: Comment: 02/19/2023, HST: AHI 5 per hour, O2 arabella 80%, average O2 sat 92%. Code(s): G47.33 - Obstructive sleep apnea (adult) (pediatric) Category: Medical (4) Cervical dystonia: Code(s): G24.3 - Spasmodic torticollis Category: Medical Plan Discussion Notes I discussed with the patient the current management of her migraine headaches and associated neck symptoms. I explained that while Botox has been tried for treating her cervical dystonia and migraines, its efficacy appears to be limited as reported by the patient. We explored alternative headache management strategies, including the potential use of triptans and Nurtec at the onset of migraine symptoms. I addressed concerns over any potential rebound headaches from medication use and clarified the definition of rebound in the context of continuous headache symptoms. I also reviewed alternate neuromodulation devices like Nerivio and GammaCore, as other patients have found relief with these, though patient feedback varies. We explored potential preventive oral medications and reconsideration of prior medication strategies- and patient will look to see if she can find documentation of previous migraine prevention trials. I outlined the challenges with current insurance coverage limitations concerning combined use strategies with Nurtec or Ubrelvy and CGRP monoclonal antibody preventative treatments. I emphasized that focusing on lifestyle modifications might be beneficial. Lastly, I mentioned acceptance commitment therapy and biofeedback as adjuncts for overall pain management, headset by diverse migraine patterns. The patient was encouraged to follow up with past treatment documentation to tailor our approach further. Patient was informed and verbally consented to the use of an ambient scribe for clinic note documentation during this visit. Plan and Patient Instructions For GREG and sleep difficulties: Pt did not tolerate Somnoguard- will monitor clinically for now as sleep apnea is mild. ? For cervical dystonia/head tic s/s: Improved. We will monitor, as patient comes off of Botox therapy. ? For overall headache management: - Continue to optimize good self-care, including but not limited to maintaining a healthy diet, adequate fluid intake, adequate sleep, and engaging in regular physical activity. - Continue to track headaches. - Continue light sensitivity strategies, such as green light therapy. - Readjust Cefaly device settings for comfort if continuing trial. - Follow up with past treatment records for further adjustment. - Explore acceptance therapy options if managing lifestyle factors- [email or web address] - explore neuro biofeedback therapy biofeedback- [email or web address] - Report any increase in headache frequency or new symptoms promptly. ? For acute headache treatment: Continue naratriptan p.r.n. Continue Nurtec ODT 75 mg q.d. as needed, as her triptans are not always fully effective. May take w/ triptan or NSAID. Acute migraine medication contraindications: Sumatriptan caused significant nausea. Zomig- ineffective and not tolerated. ? For headache prevention medication: Continue Propranolol 20 mg p.o. b.i.d.- would not increase further d/t BP low- norm. Continue Botox order, as patient has not found it fully effective after for complete cycles, and overall does not tolerate it well. Aimovig was denied by her insurance, as they will not cover both Aimovig and as needed Nurtec at the same time- though there is no clinical evidence to support their policy. Previous migraine prevention medication trials: Topamax- not tolerated. Amitriptyline- Ineffective. Aimovig- initially helpful but then effect waned. Mag and B2- ineffective. Migraine prevention medication contraindications: Would avoid alternate antihypertensive therapies at this time due to low normal blood pressure. ? Pt to follow-up in 3-6 months or sooner prn. Post visit- patient confirmed previous migraine preventative trials included T opamax, amitriptyline, Aimovig, magnesium, riboflavin, Botox. Thus, we will consider trial of had shunting with topiramate extended release, low-dose verapamil or candesartan, or memantine. Message sent to patient. Coding Level of Care Code Tele Est Pt Level 4 (71202) Diagnoses Intractable chronic migraine without aura and without status migrainosus G43.719 Intractability: intractable Status migrainosus presence: without status migrainosus Migraine with aura G43.109 Mild obstructive sleep apnea G47.33 Cervical dystonia G24.3
== END 2024-10-13 16:18 | disposition home or self-care (01) ==
LOC: HO.HSMS 10:38
PROVIDERS: PCP Nurse Practitioner Primary Care; Visit Provider Nurse Practitioner Family
DX: G43.719 Chronic migraine without aura, intractable, without status migrainosus (principal); G43.109 Migraine with aura, not intractable, without status migrainosus; G47.33 Obstructive sleep apnea (adult) (pediatric); G24.3 Spasmodic torticollis
CPT/HCPCS: 99214

== ENCOUNTER → 2024-10-13 10:38 | Outpatient (BNVA) | payer OTHER, SELFPAY | PROVIDERS: PCP Nurse Practitioner Primary Care; Visit Provider Nurse Practitioner Family ==

== ENCOUNTER 2024-11-23 08:04 | Outpatient (AMB) | payer OTHER, SELFPAY ==
[2024-11-23 08:09] VITALS: BP 120/90; PULSE 57; O2SAT 57
--- NOTE | 2024-11-23 08:09 | MHC.OFFVIS ---
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 Accompanied by: Self / Same As Patient Allergies nitrofurantoin [From Macrobid] Allergy (Unknown, Verified 11/23/24 08:09) Unknown Penicillins Allergy (Unknown, Verified 11/23/24 08:09) Unknown Medication List - Last Reconciled 11/23/24 by JEFFREY Das [Bioidentical HRT, pregnenolone (2.5mg), progesterone (20 mg), testosterone (0.5mg) PO .DAILY] atorvastatin 40 mg PO BEDTIME mecobalamin (vitamin B12) mcg PO DAILY melatonin 3 mg PO BEDTIME naratriptan 2.5 mg PO Q4H PRN 30 days propranolol 20 mg (2 x 10 mg) PO BID 30 days rimegepant (Nurtec ODT) 75 mg PO DAILY PRN 21 days HPI Comments Details: 49-yr-old female presents for f/u for migraine and GREG. Pt denies any significant interval changes. Patient ask for our opinion on mast cell activation syndrome and its relationship with headache/migraine. She states she was recently diagnosed with mild delay reactions to several foods, which he had not particularly thought she was aware of, such as wheat, chicken meat, garlic, oat- mild delayed reaction. Since last visit, patient has a adjusted how she takes her as needed migraine medication. Now using Nurtec at the very earliest sign of a migraine attack, which is hoping abort the migraine better. She continues to alternate between Nurtec and naratriptan depending on the type of migraine attack she is having. She has however continuing to have multiple headache days per month, and thus would like to further optimize her migraine treatment regimen. Patient is also open to nonpharmacological treatment interventions such as biofeedback therapy or yoga for migraine. She is less interested in trying the acceptance and commitment therapy, as she is already in multiple types of therapy at this time. PFSH Surgical History H/O parotidectomy Family History Mother Hx of migraines Father Heart disease Social History Alcohol intake: never Patient Tobacco Use Status: Never used Tobacco Substance Use Type: Marijuana Physical Exam Vital Signs: Last Vital Signs Pulse 57 11/23/24 08:09 BP 120/90 H 11/23/24 08:09 Pulse Ox 57 L 11/23/24 08:09 Oxygen Delivery Method Room Air 11/23/24 08:09 Const General: cooperative and no acute distress Orientation/consciousness: patient oriented x3 Resp Effort & Inspection: normal respiratory effort and able to speak in complete sentences Neuro Other: No visible cervical dystonia or tics. General: patient oriented x3 and moves all extremities Cranial nerves: Yes CN's II-XII intact bilaterally Cognition (Neuro): normal cognition Gait exam (Neuro): Normal gait present Psych Appearance: grossly normal Mental Status: mental status grossly normal Speech and movement: Normal speech and movement present Affect: normal affect Attitude: cooperative Thought process: Normal thought process present Assessment & Plan Assessment & Plan (1) Chronic migraine without aura: Code(s): G43.709 - Chronic migraine without aura, not intractable, without status migrainosus Category: Medical Qualifiers: Status migrainosus presence: without status migrainosus Intractability: intractable Qualified Code(s): G43.719 - Chronic migraine without aura, intractable, without status migrainosus (2) Migraine with aura: Comment: Twice has had aura Code(s): G43.109 - Migraine with aura, not intractable, without status migrainosus Category: Medical (3) Mild obstructive sleep apnea: Comment: 02/19/2023, HST: AHI 5 per hour, O2 arabella 80%, average O2 sat 92%. Code(s): G47.33 - Obstructive sleep apnea (adult) (pediatric) Category: Medical (4) Cervical dystonia: Code(s): G24.3 - Spasmodic torticollis Category: Medical Plan Discussion notes: Discussed that mast cell activation syndrome can be seen in migraine headache. Reviewed MCAS and migraine symptoms- many of which can overlap, as well as MCAS workup, diagnosis, and treatment. There are local providers with expertise in MCAS, however times if warranted, symptoms can be treated empirically. For GREG and sleep difficulties: Pt did not tolerate Somnoguard- will monitor clinically for now as sleep apnea is mild. ? For cervical dystonia/head tic s/s: Improved. We will monitor, as patient comes off of Botox therapy. ? For overall headache management: - Continue to optimize good self-care, including but not limited to maintaining a healthy diet, adequate fluid intake, adequate sleep, and engaging in regular physical activity. - Continue to track headaches. - Continue light sensitivity strategies, such as green light therapy. - May use Cefaly device as needed, only as tolerated. She may hold this if it is uncomfortable. - patient declines acceptance and commitment therapy at this time. - information shared on local biofeedback clinic in [place]- patient will reach out. -we will share information on different types of yoga for migraine therapy - Report any increase in headache frequency or new symptoms promptly. ? For acute headache treatment: Continue naratriptan p.r.n. Continue Nurtec ODT 75 mg q.d. as needed, as her triptans are not always fully effective. May take w/ triptan or NSAID. Acute migraine medication contraindications: Sumatriptan caused significant nausea. Zomig- ineffective and not tolerated. ? For headache prevention medication: Continue Propranolol 20 mg p.o. b.i.d.- would not increase further d/t BP low-norm. Trial Topiramate XR 25-50 mg daily at bedtime. Potential adverse effects of Topiramate, include but are not limited to fatigue, cognitive changes, paresthesias (tingling), vision changes, kidney stones. Previous migraine prevention medication trials: Topiramate IR not tolerated- cause cognitive difficulties. Amitriptyline- Ineffective. Aimovig- initially helpful but then effect waned. Mag and B2- ineffective. Botox- ineffective after 4 cycles and poorly tolerated. Migraine prevention medication contraindications: Nonspecific at this time Future considerations: low-dose verapamil or candesartan in place of propranolol, or memantine. ? Pt to follow-up in 3-6 months or sooner prn. Medications: New topiramate XR 25 - 50 mg (1 - 2 x 25 mg) PO DAILY 30 days 60 caps 3RF lorazepam 0.5 mg PO DAILY PRN anxiety Changed From rimegepant (Nurtec ODT) 75 mg PO Q OTHER DAY PRN G43.009 - Migraine without aura, not intractable, without status migrainosus To rimegepant (Nurtec ODT) 75 mg PO DAILY 21 days PRN 8 tabs 12RF migraine headache G43.009 - Migraine without aura, not intractable, without status migrainosus Refilled naratriptan do not exceed 2 doses per 24 hrs 2.5 mg PO Q4H 30 days PRN 12 tabs 6RF migraine headache Coding Level of Care Code Est Pt Level 4 (89387) Diagnoses Intractable chronic migraine without aura and without status migrainosus G43.719 Status migrainosus presence: without status migrainosus Intractability: intractable Migraine with aura G43.109 Mild obstructive sleep apnea G47.33 Cervical dystonia G24.3
--- OUTSIDE RECORDS SUMMARY | 2024-11-23 08:09 | XMS_ITS | Data Portability ---
Author Organization [facility] [employer], [employer] Address [address] [place] [address] [place] [address] Care Team Providers Care Client Business Manager Name Role Phone UZMA PALMA Neurologist JULITO MEJIA Referring Provider JULITO MEJIA Primary Care Provider Assessment Encounter Date Assessment Date Assessment LastModified by Organization Details LastModified Time 02/11/2023 02/11/2023 Impression: s/p trigger point injections, for Frequent intermittent migraine. --No clear benefit of Aimovig since May 2022, with 7-15 migraines per month since then, the equivalent to migraine frequency before starting Aimovig, significantly less then migraine frequency during initial months of Aimovig-April 2022. --January 06, 2023, seven migraines over 34 days off of Aimovig versus 7-15 migraines per month on Aimovig; We decided that she will stay off of Aimovig. >>>>>>>>>>January 06, 2023 and September 2022 Decision path for trigger point injections She has said that she is intrigued trigger point injections. He has a significant myofascial syndrome identified by her chiropractor Baldomero Walsh, and they have encouraged consideration of trigger point injections and have offered to provide indications of trigger points on which they have been working in regards to her headache. In this context, I suggested moving first toward trigger point injection sessions. She is agreeable. >>>>>>>>>>>>>>Maria Alejandra teresa 2022 discussion also: Other migraine treatments in reserve: In reserve is the other direction we have discussed previously: Considering a different migraine preventative Corey and moving, the only migraine preventative she has already tried. As Aimovig has not helped, I would try classic non-CGRP migraine preventatives that are class I such as propranolol, venlafaxine ER, and possibly Topamax. Should we reach this juncture, we would discuss the side effects, likely propranolol first, and consider a slow titration. If these class I medications have no benefit, Botox injections would then be considered. Finally, we could return to a retrial of the CGRP inhibitor with a medication different from Aimovig. January 06, 2023 She is on the vitamins with riboflavin and magnesium for migraine prevention from her previous neurologist. She wonders my thoughts. I agree that they both have data for some migraine prevention benefit although the data is weak compared to some of the class I migraine preventatives that are prescription medications. They are harmless unless she is having diarrhea or nausea for magnesium or bothersome yellow urine from the riboflavin. She has only the yellow urine and it is not bothersome. I do know of some people who have been helped per their reports. She decides to go off both. We will observe. January 06, 2023 She is on Cryselle for control and wonders about this relationship to her migraines. She does not have aura with her migraine. We discussed that Cryselle has 30 mcg of ethinyl estradiol, and if she had aura, there would be a small increased risk with this estrogen of the heart attack or stroke. But no such data exists for migraine without aura. There is no need to move toward progesterone only or other form of control for this reason. Additionally, some individuals have more headaches on estrogen and other individuals have less headaches on estrogen. Only a trial off of estrogen would tell. She will not make any changes now as she is planning on stopping her riboflavin and magnesium. >>>>>>>>>> December 03, 2022 She reminds me that she was brought up in a cult and thus questions that might seem out of the ordinary or serious in the context of her lack of understanding of Western medicine. I replied that I take all of her questions seriously. ?> October 30, 2022 discussion pathway toward trigger point injection sessions scheduled to start January 28, 2023 Neurological exam is normal. Muscular exam of right upper quadrant reveals no active trigger points although she mentions that many of the muscle locations in her right posterior shoulder act up when she is having a migraine. She wishes to change her current management regimen for her episodic migraine but remains undecided about which direction to go. She wonders details of trigger point injections. I tell her I generally do 10 sessions across 3 weeks. Ideally, this will be followed by stretching of the muscles, in her case by her chiropractor who has been doing this already. September 30, 2022: She brings up that she occasionally has a head twitch. I noticed this during muscular exam: There is an occasional very small amplitude shaking head movement that might be a dystonic tremor or focal neck dystonia? s pasmodic torticollis. Possibly this serves as a perpetuating factor for migraines. It is one reason to increase the priority of interventions such as trigger point injections or botulinum toxin injections. PLAN Danita Das continue off of riboflavin and magnesium. Continue log of migraines Breakthrough migraines: continue naratriptan (script management taken over, January 06, 2023) Follow-up for trigger [point ijections: 10 sessions of trigger point injection sessions, each followed by session with her chiropractor, Dr. Baldomero Walsh for stretching of the muscles injected. chiropracter to jones muscles that he feels are central to her headache syndrome. [email or web address] Not available 02/11/2023 08:47:31 02/12/2023 02/12/2023 Impression: s/p trigger point injections, for Frequent intermittent migraine. --No clear benefit of Aimovig since May 2022, with 7-15 migraines per month since then, the equivalent to migraine frequency before starting Aimovig, significantly less then migraine frequency during initial months of Aimovig-April 2022. --January 06, 2023, seven migraines over 34 days off of Aimovig versus 7-15 migraines per month on Aimovig; We decided that she will stay off of Aimovig. >>>>>>>>>>January 06, 2023 and September 2022 Decision path for trigger point injections She has said that she is intrigued trigger point injections. He has a significant myofascial syndrome identified by her chiropractor Baldomero Walsh, and they have encouraged consideration of trigger point injections and have offered to provide indications of trigger points on which they have been working in regards to her headache. In this context, I suggested moving first toward trigger point injection sessions. She is agreeable. >>>>>>>>>>>>>>Maria Alejandra teresa 2022 discussion also: Other migraine treatments in reserve: In reserve is the other direction we have discussed previously: Considering a different migraine preventative Wolfram and moving, the only migraine preventative she has already tried. As Aimovig has not helped, I would try classic non-CGRP migraine preventatives that are class I such as propranolol, venlafaxine ER, and possibly Topamax. Should we reach this juncture, we would discuss the side effects, likely propranolol first, and consider a slow titration. If these class I medications have no benefit, Botox injections would then be considered. Finally, we could return to a retrial of the CGRP inhibitor with a medication different from Aimovig. January 06, 2023 She is on the vitamins with riboflavin and magnesium for migraine prevention from her previous neurologist. She wonders my thoughts. I agree that they both have data for some migraine prevention benefit although the data is weak compared to some of the class I migraine preventatives that are prescription medications. They are harmless unless she is having diarrhea or nausea for magnesium or bothersome yellow urine from the riboflavin. She has only the yellow urine and it is not bothersome. I do know of some people who have been helped per their reports. She decides to go off both. We will observe. January 06, 2023 She is on Cryselle for control and wonders about this relationship to her migraines. She does not have aura with her migraine. We discussed that Cryselle has 30 mcg of ethinyl estradiol, and if she had aura, there would be a small increased risk with this estrogen of the heart attack or stroke. But no such data exists for migraine without aura. There is no need to move toward progesterone only or other form of control for this reason. Additionally, some individuals have more headaches on estrogen and other individuals have less headaches on estrogen. Only a trial off of estrogen would tell. She will not make any changes now as she is planning on stopping her riboflavin and magnesium. >>>>>>>>>> December 03, 2022 She reminds me that she was brought up in a cult and thus questions that might seem out of the ordinary or serious in the context of her lack of understanding of Western medicine. I replied that I take all of her questions seriously. ?> October 30, 2022 discussion pathway toward trigger point injection sessions scheduled to start January 28, 2023 Neurological exam is normal. Muscular exam of right upper quadrant reveals no active trigger points although she mentions that many of the muscle locations in her right posterior shoulder act up when she is having a migraine. She wishes to change her current management regimen for her episodic migraine but remains undecided about which direction to go. She wonders details of trigger point injections. I tell her I generally do 10 sessions across 3 weeks. Ideally, this will be followed by stretching of the muscles, in her case by her chiropractor who has been doing this already. September 30, 2022: She brings up that she occasionally has a head twitch. I noticed this during muscular exam: There is an occasional very small amplitude shaking head movement that might be a dystonic tremor or focal neck dystonia? s pasmodic torticollis. Possibly this serves as a perpetuating factor for migraines. It is one reason to increase the priority of interventions such as trigger point injections or botulinum toxin injections. >>>>>>>>>>>>>>>>>> >>>>>>>>>>>> PLAN Danita Das >>>>>>>>>>>>>>>>>> >>>>>>>>>> continue off of riboflavin and magnesium. Continue log of migraines Breakthrough migraines: continue naratriptan (script management taken over, January 06, 2023) Follow-up for trigger [point ijections: 10 sessions of trigger point injection sessions, each followed by session with her chiropractor, Dr. Baldomero Walsh for stretching of the muscles injected. chiropracter to jones muscles that he feels are central to her headache syndrome. [email or web address] Not available 02/12/2023 08:25:00 02/13/2023 02/13/2023 Impression: s/p trigger point injections, for Frequent intermittent migraine. --No clear benefit of Aimovig since May 2022, with 7-15 migraines per month since then, the equivalent to migraine frequency before starting Aimovig, significantly less then migraine frequency during initial months of Aimovig-April 2022. --January 06, 2023, seven migraines over 34 days off of Aimovig versus 7-15 migraines per month on Aimovig; We decided that she will stay off of Aimovig. >>>>>>>>>>January 06, 2023 and September 2022 Decision path for trigger point injections She has said that she is intrigued trigger point injections. He has a significant myofascial syndrome identified by her chiropractor Baldomero Walsh, and they have encouraged consideration of trigger point injections and have offered to provide indications of trigger points on which they have been working in regards to her headache. In this context, I suggested moving first toward trigger point injection sessions. She is agreeable. >>>>>>>>>>>>>>Maria Alejandra teresa 2022 discussion also: Other migraine treatments in reserve: In reserve is the other direction we have discussed previously: Considering a different migraine preventative Armando, the only migraine preventative she has already tried. As Aimovig has not helped, I would try classic non-CGRP migraine preventatives that are class I such as propranolol, venlafaxine ER, and possibly Topamax. Should we reach this juncture, we would discuss the side effects, likely propranolol first, and consider a slow titration. If these class I medications have no benefit, Botox injections would then be considered. Finally, we could return to a retrial of the CGRP inhibitor with a medication different from Aimovig. January 06, 2023 She is on the vitamins with riboflavin and magnesium for migraine prevention from her previous neurologist. She wonders my thoughts. I agree that they both have data for some migraine prevention benefit although the data is weak compared to some of the class I migraine preventatives that are prescription medications. They are harmless unless she is having diarrhea or nausea for magnesium or bothersome yellow urine from the riboflavin. She has only the yellow urine and it is not bothersome. I do know of some people who have been helped per their reports. She decides to go off both. We will observe. January 06, 2023 She is on Cryselle for control and wonders about this relationship to her migraines. She does not have aura with her migraine. We discussed that Cecilio has 30 mcg of ethinyl estradiol, and if she had aura, there would be a small increased risk with this estrogen of the heart attack or stroke. But no such data exists for migraine without aura. There is no need to move toward progesterone only or other form of control for this reason. Additionally, some individuals have more headaches on estrogen and other individuals have less headaches on estrogen. Only a trial off of estrogen would tell. She will not make any changes now as she is planning on stopping her riboflavin and magnesium. >>>>>>>>>> December 03, 2022 She reminds me that she was brought up in a cult and thus questions that might seem out of the ordinary or serious in the context of her lack of understanding of Western medicine. I replied that I take all of her questions seriously. ?> October 30, 2022 discussion pathway toward trigger point injection sessions scheduled to start January 28, 2023 Neurological exam is normal. Muscular exam of right upper quadrant reveals no active trigger points although she mentions that many of the muscle locations in her right posterior shoulder act up when she is having a migraine. She wishes to change her current management regimen for her episodic migraine but remains undecided about which direction to go. She wonders details of trigger point injections. I tell her I generally do 10 sessions across 3 weeks. Ideally, this will be followed by stretching of the muscles, in her case by her chiropractor who has been doing this already. September 30, 2022: She brings up that she occasionally has a head twitch. I noticed this during muscular exam: There is an occasional very small amplitude shaking head movement that might be a dystonic tremor or focal neck dystonia? s pasmodic torticollis. Possibly this serves as a perpetuating factor for migraines. It is one reason to increase the priority of interventions such as trigger point injections or botulinum toxin injections. >>>>>>>>>>>>>>>>>> >>>>>>>>>>>> PLAN Danita Das >>>>>>>>>>>>>>>>>> >>>>>>>>>> continue off of riboflavin and magnesium. Continue log of migraines Breakthrough migraines: continue naratriptan (script management taken over, January 06, 2023) continue stretching Avoid known triggers for headaches such as festivals with staying up all night Follow-up 4 - 6 weeks for reevaluation say Not available 02/13/2023 08:20:56 03/13/2023 03/13/2023 Impression: s/p trigger point injections, for Frequent intermittent migraine. --No clear benefit of Aimovig since May 2022, with 7-15 migraines per month since then, the equivalent to migraine frequency before starting Aimovig, significantly less then migraine frequency during initial months of Aimovig-April 2022. --January 06, 2023, seven migraines over 34 days off of Aimovig versus 7-15 migraines per month on Aimovig; We decided that she will stay off of Aimovig. -- She is disappointed that naratriptan takes 2 hours to work. We decided to switch naratriptan to rizatriptan, which anecdotally is supposed to work more powerfully and more quickly. Rizatriptan had helped before but she had used it too much and was diagnosed with rebound headache from it. We will monitor carefully to make sure that does not help. She wonders if she will always have to stay away from activities she enjoys. I am hopeful this is not the case. I believe she should go back slowly I suggest 10% back, not as vigorous as [place] but still something more than what she has been doing otherwise. She understands and will try. >>>>>>>>>>January 06, 2023 and September 2022 Decision path for trigger point injections She has said that she is intrigued trigger point injections. He has a significant myofascial syndrome identified by her chiropractor Baldomero Walsh, and they have encouraged consideration of trigger point injections and have offered to provide indications of trigger points on which they have been working in regards to her headache. In this context, I suggested moving first toward trigger point injection sessions. She is agreeable. >>>>>>>>>>>>>>Maria Alejandra teresa 2022 discussion also: Other migraine treatments in reserve: In reserve is the other direction we have discussed previously: Considering a different migraine preventative Wolfram and moving, the only migraine preventative she has already tried. As Aimovig has not helped, I would try classic non-CGRP migraine preventatives that are class I such as propranolol, venlafaxine ER, and possibly Topamax. Should we reach this juncture, we would discuss the side effects, likely propranolol first, and consider a slow titration. If these class I medications have no benefit, Botox injections would then be considered. Finally, we could return to a retrial of the CGRP inhibitor with a medication different from Aimovig. January 06, 2023 She is on the vitamins with riboflavin and magnesium for migraine prevention from her previous neurologist. She wonders my thoughts. I agree that they both have data for some migraine prevention benefit although the data is weak compared to some of the class I migraine preventatives that are prescription medications. They are harmless unless she is having diarrhea or nausea for magnesium or bothersome yellow urine from the riboflavin. She has only the yellow urine and it is not bothersome. I do know of some people who have been helped per their reports. She decides to go off both. We will observe. January 06, 2023 She is on Cryselle for control and wonders about this relationship to her migraines. She does not have aura with her migraine. We discussed that Cryselle has 30 mcg of ethinyl estradiol, and if she had aura, there would be a small increased risk with this estrogen of the heart attack or stroke. But no such data exists for migraine without aura. There is no need to move toward progesterone only or other form of control for this reason. Additionally, some individuals have more headaches on estrogen and other individuals have less headaches on estrogen. Only a trial off of estrogen would tell. She will not make any changes now as she is planning on stopping her riboflavin and magnesium. >>>>>>>>>> December 03, 2022 She reminds me that she was brought up in a cult and thus questions that might seem out of the ordinary or serious in the context of her lack of understanding of Western medicine. I replied that I take all of her questions seriously. ?> October 30, 2022 discussion pathway toward trigger point injection sessions scheduled to start January 28, 2023 Neurological exam is normal. Muscular exam of right upper quadrant reveals no active trigger points although she mentions that many of the muscle locations in her right posterior shoulder act up when she is having a migraine. She wishes to change her current management regimen for her episodic migraine but remains undecided about which direction to go. She wonders details of trigger point injections. I tell her I generally do 10 sessions across 3 weeks. Ideally, this will be followed by stretching of the muscles, in her case by her chiropractor who has been doing this already. September 30, 2022: She brings up that she occasionally has a head twitch. I noticed this during muscular exam: There is an occasional very small amplitude shaking head movement that might be a dystonic tremor or focal neck dystonia? s pasmodic torticollis. Possibly this serves as a perpetuating factor for migraines. It is one reason to increase the priority of interventions such as trigger point injections or botulinum toxin injections. >>>>>>>>>>>>>>>>>> >>>>>>>>>>>> PLAN Danita Das March 13, 2023 >>>>>>>>>>>>>>>>>> >>>>>>>>>> continue off of riboflavin and magnesium. Continue log of migraines Breakthrough migraines: Switch naratriptan to rizatriptan 10 mg at the beginning of migraine, may repeat once after 1 hour, maximum 20 mg / 24 hours. continue stretching Avoid known triggers for headaches such as festivals with staying up all night Follow-up 2 months say Not available 03/13/2023 12:39:03 05/12/2023 05/12/2023 Impression: s/p trigger point injections, for Frequent intermittent migraine. --No clear benefit of Aimovig since May 2022, with 7-15 migraines per month since then, the equivalent to migraine frequency before starting Aimovig, significantly less then migraine frequency during initial months of Aimovig-April 2022. --January 06, 2023, seven migraines over 34 days off of Aimovig versus 7-15 migraines per month on Aimovig; We decided that she will stay off of Aimovig. --March 13, 2023 - intense migraines, 1/wk, since Marry'23 trigger point injection sessions, and no daily migraines? b ut no triggers like music festivals ? O ctober 2022: Six moderate migraines over 8 weeks, going away with rizatriptan in 1 hour without side effect, avoiding known triggers. I suggest that she try to enlarge the scope of her activities, cautiously, to see if she can maintain the relative success that she has in reduction of migraines. She might try a hike of [employer]. She might try a music event one evening, although not a all day festival yet. She wonders about diet. She has cut out some food that she likes on the possibility that the food relates to migraine but she has not tested the hypothesis. She has read the book: Rigoberto Parker MD, Heal Your Headache,? mood has an extensive part about relationship of diet to headache. I tell her that I will defer to his observations on this. I cautioned that she would do best to limit experimentation on triggers one at a time, diet or nondiet. >>>>>>>>>>February She is disappointed that naratriptan takes 2 hours to work. We decided to switch naratriptan to rizatriptan, which anecdotally is supposed to work more powerfully and more quickly. Rizatriptan had helped before but she had used it too much and was diagnosed with rebound headache from it. We will monitor carefully to make sure that does not help. She wonders if she will always have to stay away from activities she enjoys. I am hopeful this is not the case. I believe she should go back slowly I suggest 10% back, not as vigorous as climbing [employer] but still something more than what she has been doing otherwise. She understands and will try. >>>>>>>>>>January 06, 2023 and September 2022 Decision path for trigger point injections She has said that she is intrigued trigger point injections. He has a significant myofascial syndrome identified by her chiropractor Baldomero Walsh, and they have encouraged consideration of trigger point injections and have offered to provide indications of trigger points on which they have been working in regards to her headache. In this context, I suggested moving first toward trigger point injection sessions. She is agreeable. >>>>>>>>>>>>>>Maria Alejandra l 2022 discussion also: Other migraine treatments in reserve: In reserve is the other direction we have discussed previously: Considering a different migraine preventative Armando, the only migraine preventative she has already tried. As Aimovig has not helped, I would try classic non-CGRP migraine preventatives that are class I such as propranolol, venlafaxine ER, and possibly Topamax. Should we reach this juncture, we would discuss the side effects, likely propranolol first, and consider a slow titration. If these class I medications have no benefit, Botox injections would then be considered. Finally, we could return to a retrial of the CGRP inhibitor with a medication different from Aimovig. January 06, 2023 She is on the vitamins with riboflavin and magnesium for migraine prevention from her previous neurologist. She wonders my thoughts. I agree that they both have data for some migraine prevention benefit although the data is weak compared to some of the class I migraine preventatives that are prescription medications. They are harmless unless she is having diarrhea or nausea for magnesium or bothersome yellow urine from the riboflavin. She has only the yellow urine and it is not bothersome. I do know of some people who have been helped per their reports. She decides to go off both. We will observe. January 06, 2023 She is on Cryselle for control and wonders about this relationship to her migraines. She does not have aura with her migraine. We discussed that Cryselle has 30 mcg of ethinyl estradiol, and if she had aura, there would be a small increased risk with this estrogen of the heart attack or stroke. But no such data exists for migraine without aura. There is no need to move toward progesterone only or other form of control for this reason. Additionally, some individuals have more headaches on estrogen and other individuals have less headaches on estrogen. Only a trial off of estrogen would tell. She will not make any changes now as she is planning on stopping her riboflavin and magnesium. >>>>>>>>>> December 03, 2022 She reminds me that she was brought up in a cult and thus questions that might seem out of the ordinary or serious in the context of her lack of understanding of Western medicine. I replied that I take all of her questions seriously. ?> October 30, 2022 discussion pathway toward trigger point injection sessions scheduled to start January 28, 2023 Neurological exam is normal. Muscular exam of right upper quadrant reveals no active trigger points although she mentions that many of the muscle locations in her right posterior shoulder act up when she is having a migraine. She wishes to change her current management regimen for her episodic migraine but remains undecided about which direction to go. She wonders details of trigger point injections. I tell her I generally do 10 sessions across 3 weeks. Ideally, this will be followed by stretching of the muscles, in her case by her chiropractor who has been doing this already. September 30, 2022: She brings up that she occasionally has a head twitch. I noticed this during muscular exam: There is an occasional very small amplitude shaking head movement that might be a dystonic tremor or focal neck dystonia? s pasmodic torticollis. Possibly this serves as a perpetuating factor for migraines. It is one reason to increase the priority of interventions such as trigger point injections or botulinum toxin injections. >>>>>>>>>>>>>>>>>> >>>>>>>>>>>> PLAN Danita Pippa May 12 2023 >>>>>>>>>>>>>>>>>> >>>>>>>>>> continue off of riboflavin and magnesium. Continue log of migraines Breakthrough migraines: Continue rizatriptan 10 mg at the beginning of migraine, may repeat once after 1 hour, maximum 20 mg / 24 hours. continue stretching Avoid known triggers for headaches such as festivals with staying up all night Follow-up 4 months [email or web address] Not available 05/12/2023 17:17:53 Plan of Treatment Reminders Order Date Submit Date Provider Last Modified By Organization Details Last Modified Time Details Appointments None recorded. Lab None recorded. Referral None recorded. Procedures None recorded. Surgeries None recorded. Imaging None recorded. Medication Orders rizatriptan 10 mg tablet 2022 023 [id number], [address] [facility], [place], [address], 12:39:38 Patient TargetsNo targets recorded. Patient Instructions Encounter Date Encounter Id Patient Instructions Last Modified By Organization Details Last Modified Time 02/11/2023 [id number] PREVIOUS MEDICATIONS Aimovig, no help, seven migraines and 34 days off January 02, 2023 versus 7-15/month on Aimovig previously. For migraine breakthrough, Per chart, rizatriptan caused rebound syndrome as she was using it quite frequently. Naratriptan helped a decent amount. For migraine prevention, amitriptyline did not help sufficiently. Topiramate caused brain fog. Aimovig initially cut migraine frequency by ~50% in November-February,, but has seemed to help less from then through August 2022 Chronic condition with exacerbation; prescription medication management mrossen Not available 02/11/2023 08:47:09 02/12/2023 [id number] PREVIOUS MEDICATIONS Aimovig, no help, seven migraines and 34 days off January 02, 2023 versus 7-15/month on Aimovig previously. For migraine breakthrough, Per chart, rizatriptan caused rebound syndrome as she was using it quite frequently. Naratriptan helped a decent amount. For migraine prevention, amitriptyline did not help sufficiently. Topiramate caused brain fog. Aimovig initially cut migraine frequency by ~50% in February,, but has seemed to help less from then through August 2022 Chronic condition with exacerbation; prescription medication management mrossen Not available 02/12/2023 08:07:35 02/13/2023 [id number] PREVIOUS MEDICATIONS Aimovig, no help, seven migraines and 34 days off January 02, 2023 versus 7-15/month on Aimovig previously. For migraine breakthrough, Per chart, rizatriptan caused rebound syndrome as she was using it quite frequently. Naratriptan helped a decent amount. For migraine prevention, amitriptyline did not help sufficiently. Topiramate caused brain fog. Aimovig initially cut migraine frequency by ~50% in February,, but has seemed to help less from then through August 2022 Chronic condition with exacerbation; prescription medication management mrossen Not available 02/13/2023 08:04:51 03/13/2023 [id number] PREVIOUS MEDICATIONS Aimovig, no help, seven migraines and 34 days off January 02, 2023 versus 7-15/month on Aimovig previously. For migraine breakthrough, Per chart, rizatriptan caused rebound syndrome as she was using it quite frequently. Naratriptan helped a decent amount. For migraine prevention, amitriptyline did not help sufficiently. Topiramate caused brain fog. Aimovig initially cut migraine frequency by ~50% in November-February,, but has seemed to help less from then through August 2022 Chronic condition with exacerbation; prescription medication management mrossen Not available 03/13/2023 12:13:02 05/12/2023 [id number] PREVIOUS MEDICATIONS Aimovig, no help, seven migraines and 34 days off January 02, 2023 versus 7-15/month on Aimovig previously. Sumatriptan, nause, previous to initial consult, nausea; For migraine breakthrough, Per chart, rizatriptan caused rebound syndrome as she was using it quite frequently. Naratriptan helped a decent amount. For migraine prevention, amitriptyline did not help sufficiently. Topiramate caused brain fog. Aimovig initially cut migraine frequency by ~50% in November-February,, but has seemed to help less from then through August 2022 Chronic condition with exacerbation; prescription medication management mrossen Not available 05/12/2023 16:54:52 Reason for Referral None Reported. Procedures Surgical History Date Name Laterality Status Provider Name and Address Organization Details Recorded Time 3 trigger point injection completed Antolin Mcdonald MD [address] [place], [place] [address], [phone], [facility] 05/12/2023 16:41:18 3 trigger point injection completed Antolin Mcdonald MD [address] [place], [place] [address], [phone], [facility] 03/13/2023 12:15:13 3 trigger point injection completed Antolin Mcdonald MD [address] [place], [place] [address], [phone], [facility] 02/13/2023 08:20:30 3 trigger point injection completed Antolin Mcdonald MD [address] [place], [place] [address], [phone], [facility] 02/12/2023 08:24:11 3 trigger point injection completed Antolin Mcdonald MD [address] [place] [address] ANNELIES[place] Kraus, [phone], [facility] 02/11/2023 09:09:30 3 trigger point injection completed Antolin Mcdonald MD [address] [place] [address] ANNELIESE Kraus, [phone], [facility] 02/06/2023 08:45:09 3 trigger point injection completed Antolin Mcdonald MD [address] [place] [address], ANNELIESE Kraus, [phone], [facility] 02/06/2023 08:55:42 3 trigger point injection completed Antolin Mcdonald MD [address] [place] [address] ANNELIES[place] Kraus, [phone], [facility] 02/06/2023 08:54:06 3 trigger point injection completed Antolin Mcdonald MD [address] [place] [address], ANNELIESE Kraus, [phone], [facility] 02/06/2023 08:52:42 3 trigger point injection completed Antolin Mcdonald MD [address] [place] [address], ANNELIESE Kraus, [phone], [facility] 02/06/2023 08:50:42 3 trigger point injection completed Antolin Mcdonald MD [address] [place] [address] ANNELIESE Kraus, [phone], [facility] 02/06/2023 08:47:24 3 trigger point injection completed Antolin Mcdonald MD [address] [place] [address] ANNELIESE Kraus, [phone], [facility] 02/06/2023 08:46:13 Imaging Results None recorded. Procedure Notes None recorded. Medical Equipment None Reported. Allergies Allergen ID Allergen Name Allergen Category Reaction Reaction Severity Criticality Documentation Date Start Date Code Code System Note Provider Name and Address Organization Details Recorded Time 6828 Product containin g penicilli n (product) medicatio n Not available Not available Not available 09/30/2022 95762 8001 SNOMED [facility] 3 09:05:28 2408 nitrofura ntoin medicatio n Not available Not available Not available 09/30/2022 7454 RxNorm [facility] 3 09:05:39 Medications Name Sig Start Date Stop Date Status Note LastModified by Organization Details LastModified Time flowflex covid-19 antigen home test kit active Not Available Not Available Not Available atorvastatin 40 mg tablet active Not Available Not Available Not Available sumatriptan 100 mg tablet active Not Available Not Available Not Available rizatriptan 10 mg tablet 1 tablet at the very beginning of migraine, may repeat after 1 hour, maximum 2 tablets / 24 hours, 6 tablets/wee k active Not Available Not Available No t Available topiramate 25 mg tablet active Not Available Not Available Not Available amitriptylin e 50 mg tablet active Not Available Not Available Not Available naratriptan 2.5 mg tablet 1/2 to 1 tablet at very beginning of migraine, may repeat in 1 hour, maximum 2 tablets / 24 hours, 6 tablets/wee k. active Not Available Not Available No t Available Cryselle (28) 0.3 mg-30 mcg tablet active Not Available Not Available Not Available GaviLyte-G 236 gram-22.74 gram-6.74 gram-5.86 gram oral solution active Not Available Not Available Not Available Aimovig Autoinjector 140 mg/mL subcutaneous auto-injecto r active Not Available Not Available Not Available Flowflex COVID-19 Antigen Home Test kit USE ACCORDING TO THE MANUFACTERS DIRECTIONS active Not Available Not Available N ot Available Vitals None Recorded Social History Question Answer Notes LastModified by Organizat ion Details LastModified Time Tobacco Smoking Status Former Smoker [facility] 09/30/2022 09:06:59 What Is Your Level Of Alcohol Consumption? None Information not available 09/30/2022 What Is Your Level Of Caffeine Consumption? None Information not available 09/30/2022 What Is The Highest Grade Or Level Of School You Have Completed Or The Highest Degree You Have Received? CS44922-5 Information not available 09/30/2022 Which Of Your Hands Is Dominant? Right Information not available 09/30/2022 What Is Your Relationship Status? Information not available 09/30/2022 Sex: Unknown Functional Status None recorded. Mental Status None recorded. Family History Relationship Description Onset Age of this Age Resolved Age Notes LastModified by Organization Details LastModified Time Unspecified Relation Headache [email or web address] Not available 09:06:02 Unspecified Relation Heart disease [email or web address] Not available 09:06:10 Medical History Condition Response Vitamin D Deficiency Headaches Y Gynecological HistoryNo gynecological history recorded. 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.3 Torticollis 62261097 M43 .6 [id number] Antolin Mcdonald MD [address] [place] [address] 10/30/2022 12:56:16 10/30/2022 18:14:52 Migraine without aura 25213599 G43.009 Menstrual migraine 42944 000 G43.829 Dystonia 17319278 G24.3 Torticollis 30812937 M43 .6 [id number] Antolin Mcdonald MD [address] [place] [address] 12/03/2022 14:35:02 12/03/2022 16:15:10 Migraine without aura 52744025 G43.009 Menstrual migraine 45924 000 G43.829 Dystonia 27807292 G24.3 Torticollis 73288940 M43 .6 [id number] Antolin Mcdonald MD [facility] [address] [place] [address] [place] [address] 01/06/2023 10:33:38 01/06/2023 11:02:18 Migraine without aura 12736888 G43.009 Menstrual migraine 69479 000 G43.829 Dystonia 57466071 G24.3 Torticollis 58418200 M43 .6 [id number] Antolin Mcdonald MD [facility] [address] [place] [address] [place] KRA[place] ANNELIESE [id number] 4 01/29/2023 07:55:28 01/29/2023 08:29:45 Migraine without aura 87740988 G43.009 Menstrual migraine 82707 000 G43.829 Dystonia 35812820 G24.3 Torticollis 60036038 M43 .6 [id number] Antolin Mcdonald MD [facility] [address] [place] [address] [place] KRA[place] ANNELIESE [id number] 4 01/28/2023 08:23:19 01/28/2023 09:46:48 Migraine without aura 26028371 G43.009 Menstrual migraine 39621 000 G43.829 Dystonia 30423674 G24.3 Torticollis 30830342 M43 .6 [id number] Antolin Mcdonald MD [facility] [address] [place] [address] LEXI FARRISANNELIESE ESCUDERO [id number] 4 01/30/2023 07:56:09 01/30/2023 08:37:57 Migraine without aura 38701579 G43.009 Menstrual migraine 01148 000 G43.829 Dystonia 08938822 G24.3 Torticollis 18608244 M43 .6 [id number] Antolin Mcdonald MD [facility] [address] [place] [address] Marcelino KRAUSANNELIESE [id number] 4 02/03/2023 07:53:54 02/03/2023 09:15:13 Migraine without aura 35579624 G43.009 Menstrual migraine 11984 000 G43.829 Dystonia 65950274 G24.3 Torticollis 02773349 M43 .6 [id number] Antolin Mcdonald MD [facility] [address] [place] [address] Marcelino FARRISNAYANAANNELIESE ESCUDERO [id number] 4 02/04/2023 07:56:36 02/04/2023 09:31:27 Migraine without aura 89149257 G43.009 Menstrual migraine 54507 000 G43.829 Dystonia 98015666 G24.3 Torticollis 59506822 M43 .6 [id number] Antolin Mcdonald MD [facility] [address] [place] [address] [place] [address] 02/05/2023 08:05:02 02/05/2023 08:33:08 Migraine without aura 47942887 G43.009 Menstrual migraine 94904 000 G43.829 Dystonia 37432286 G24.3 Torticollis 76400830 M43 .6 [id number] Antolin Mcdonald MD [facility] [address] [place] [address] Marcelino KRAUS ANNELIESE [id number] 4 02/06/2023 08:22:56 02/06/2023 09:13:14 Migraine without aura 72991288 G43.009 Menstrual migraine 26287 000 G43.829 Dystonia 22288450 G24.3 Torticollis 40283262 M43 .6 [id number] Antolin Mcdonald MD [facility] [address] [place] [address] LEXI KRAUSANNELIESE [id number] 4 02/11/2023 08:18:02 02/11/2023 09:23:48 Migraine without aura 12714345 G43.009 Menstrual migraine 52764 000 G43.829 Dystonia 20328526 G24.3 Torticollis 83829156 M43 .6 [id number] Antolin Mcdonald MD [facility] [address] [place] [address] LEXI FARRISANNELIESE ESCUDERO [id number] 4 02/12/2023 07:56:09 02/12/2023 09:08:18 Migraine without aura 92873415 G43.009 Menstrual migraine 36879 000 G43.829 Dystonia 05963698 G24.3 Torticollis 94690236 M43 .6 [id number] Antolin Mcdonald MD [facility] [address] [place] [address] Marcelino FARRISNAYANAANNELIESE ESCUDERO [id number] 4 02/13/2023 08:01:30 02/13/2023 09:07:16 Migraine without aura 45479010 G43.009 Menstrual migraine 88248 000 G43.829 Dystonia 82814007 G24.3 Torticollis 73095009 M43 .6 [id number] Antolin Mcdonald MD [facility] [address] [place] [address] [place] [address] 03/13/2023 12:01:00 03/13/2023 17:02:22 Migraine without aura 90868994 G43.009 Menstrual migraine 19367 000 G43.829 Dystonia 60365938 G24.3 Torticollis 62236726 M43 .6 [id number] Antolin Mcdonald MD [facility] [address] [place] [address] L[place] KRAUS ANNELIESE [id number] 4 05/12/2023 16:31:48 05/13/2023 09:46:10 Migraine without aura 83284036 G43.009 Menstrual migraine 49723 000 G43.829 Dystonia 38713850 G24.3 Torticollis 24471047 M43 .6 Health Concerns Section Related Observation LastModified by Organization Detai ls LastModified Time None Recorded Concern Status LastModified by Organization Details LastModified Time None Recorded Advance Directives Directive None Recorded Payers Encounter Date Sequence Insurance Name Policy Number Policy Zepeda Covered Member ID Zepeda Member ID Guarantor Name 02/11/2023 1 [facility] - DIRECT CONNECTORCARE TYPE I (HMO) [id number] Danita Das [id number] Danita Das 02/12/2023 1 [facility] [employer] - [employer] TYPE I (HMO) [id number] Danita Das [id number] Danita Das 02/13/2023 1 [facility] - DIRECT CONNE[employer]CARE TYPE I (HMO) [id number] Danita Das [id number] Danita Das 03/13/2023 1 [facility] [employer] - DIRECT CONNE[employer]CARE TYPE I (HMO) [id number] Danita Das [id number] 01 Danita Das 05/12/2023 1 [facility] - DIRECT CONNE[employer]CARE TYPE I (HMO) [id number] Danita Das [id number] 01 Danita Das Notes Date Note Type Note Provider Name and Address Organization Details Recorded Time 02/11/2023 text/html Neurology follow -up of frequent episodic migraine without aura. History includes chart, insomnia and right benign parotid mass status postParotidectomy. She is a former cigarette smoker, quitting in her 20s. She is perimenopausal. >>>>>>>>>> January 06, 2023, most recent follow-up before starting trigger point injections:Since December 03, 2022 neurology follow-up encounter, she has remained off of Aimovig monthly subcutaneous injection for migraine prevention, December 03 through January 02, which has been her normal span of time for one monthly shot? s he is 4 days past that. She has had seven headaches, including 5 days in a row when she was patient came in on 30 mg/1.2 mg festival that was triggering of headaches. She also had 8 days in a row after that with no headaches at all. >>>>>>>>>> December 03, 2022Since October 30, 2022 neurology follow-up encounter, the patient contacted me patient portal, asking me to take over management of a moving as her former neurologist is no longer able to manage that medication. I replied that my understanding from reviewing the chart is that Aimovig initially helped but that starting toward the end of 2021, it stopped helping? b ad migraines returned to approximately the same monthly frequency as before starting Aimovig. In this context, I would have trouble getting the preauthorization necessary from insurance. Today, she agrees with this assessment. He has been scared that if she came off a moving there might be some reaction. Her next shot of monthly Aimovig was due yesterday, December 02 she reviews her migraine lo migraines in September, nine migraines in October, six migraines through December 02, and a migraine today, December 03. >>>>>>>>>> October 30, 2022Since initial neurology consultation September 30, 2022, she reports no change to her headaches.Presenting symptomatology is reviewed from initial neurology consultation September 30, 2022:Headaches began in her teenage years but were very periodic in her high school and college years. They increased in their morbidity in her 20s, enough so that she quit cigarettes thinking that would help sufficiently? i t did not. She did not know about migraines at that age. Understanding emerged in her 30s although the migraines continue to bother her.Migraine begins with brain fog? d ifficulty thinking, and frustration which she eventually realizes is part of her emerging bad migraine. If she does not use a breakthrough medication, terrible pain ensues, often starting in the right but sometimes it spreading throughout the whole head causing terrible pain, with light and sound sensitivity, nausea, forcing her to lie down and dark room. Without medication, she might still eventually get to sleep. If she does, migraine is gone at waking.However, she is on naratriptan for bad migraine breakthrough and this works well every time. She is on Aimovig for migraine prevention since ~November 2021. This seemed to work partially but noticeably made through February 2022 with 5-6 bad migraines per month as opposed to eight or more migraines per month previously. However, March 2022 through August 2022, she has had ~9 bad migraines per month, ranging 7-15 bad migraines per month.In addition, she gets lesser headaches frequently so that her total headache burden is consistently over 15 headache days per month.She has found benefit from chiropractic intervention from Dr. Brett Walsh and from massage (per chart, previous physical therapy for myofascial release was less helpful). She has noticed that certain foods trigger migraine but would like to be able to eat what she wants. Antolin Mcdonald MD [address] [place] [address], [phone], [facility] 02/11/2023 09:10:31 02/12/2023 text/html Neurology follow -up of frequent episodic migraine without aura. History includes chart, insomnia and right benign parotid mass status postParotidectomy. She is a former cigarette smoker, quitting in her 20s. She is perimenopausal. >>>>>>>>>> January 06, 2023, most recent follow-up before starting trigger point injections:Since December 03, 2022 neurology follow-up encounter, she has remained off of Aimovig monthly subcutaneous injection for migraine prevention, December 03 through January 02, which has been her normal span of time for one monthly shot? s he is 4 days past that. She has had seven headaches, including 5 days in a row when she was patient came in on 30 mg/1.2 mg festival that was triggering of headaches. She also had 8 days in a row after that with no headaches at all. >>>>>>>>>> December 03, 2022Since October 30, 2022 neurology follow-up encounter, the patient contacted me patient portal, asking me to take over management of a moving as her former neurologist is no longer able to manage that medication. I replied that my understanding from reviewing the chart is that Aimovig initially helped but that starting toward the end of 2021, it stopped helping? b ad migraines returned to approximately the same monthly frequency as before starting Aimovig. In this context, I would have trouble getting the preauthorization necessary from insurance. Today, she agrees with this assessment. He has been scared that if she came off a moving there might be some reaction. Her next shot of monthly Aimovig was due yesterday, December 02 she reviews her migraine lo migraines in September, nine migraines in October, six migraines through December 02, and a migraine today, December 03. >>>>>>>>>> October 30, 2022Since initial neurology consultation September 30, 2022, she reports no change to her headaches.Presenting symptomatology is reviewed from initial neurology consultation September 30, 2022:Headaches began in her teenage years but were very periodic in her high school and college years. They increased in their morbidity in her 20s, enough so that she quit cigarettes thinking that would help sufficiently? i t did not. She did not know about migraines at that age. Understanding emerged in her 30s although the migraines continue to bother her.Migraine begins with brain fog? d ifficulty thinking, and frustration which she eventually realizes is part of her emerging bad migraine. If she does not use a breakthrough medication, terrible pain ensues, often starting in the right but sometimes it spreading throughout the whole head causing terrible pain, with light and sound sensitivity, nausea, forcing her to lie down and dark room. Without medication, she might still eventually get to sleep. If she does, migraine is gone at waking.However, she is on naratriptan for bad migraine breakthrough and this works well every time. She is on Aimovig for migraine prevention since ~November 2021. This seemed to work partially but noticeably made through February 2022 with 5-6 bad migraines per month as opposed to eight or more migraines per month previously. However, March 2022 through August 2022, she has had ~9 bad migraines per month, ranging 7-15 bad migraines per month.In addition, she gets lesser headaches frequently so that her total headache burden is consistently over 15 headache days per month.She has found benefit from chiropractic intervention from Dr. Brett Walsh and from massage (per chart, previous physical therapy for myofascial release was less helpful). She has noticed that certain foods trigger migraine but would like to be able to eat what she wants. Antolin Mcdonald MD [address] [place] [address] [place], [phone], [facility] 02/12/2023 08:25:43 02/13/2023 text/html Neurology follow -up of frequent episodic migraine without aura. History includes chart, insomnia and right benign parotid mass status postParotidectomy. She is a former cigarette smoker, quitting in her 20s. She is perimenopausal. >>>>>>>>>> January 06, 2023, most recent follow-up before starting trigger point injections:Since December 03, 2022 neurology follow-up encounter, she has remained off of Aimovig monthly subcutaneous injection for migraine prevention, December 03 through January 02, which has been her normal span of time for one monthly shot? s he is 4 days past that. She has had seven headaches, including 5 days in a row when she was patient came in on 30 mg/1.2 mg festival that was triggering of headaches. She also had 8 days in a row after that with no headaches at all. >>>>>>>>>> December 03, 2022Since October 30, 2022 neurology follow-up encounter, the patient contacted me patient portal, asking me to take over management of a moving as her former neurologist is no longer able to manage that medication. I replied that my understanding from reviewing the chart is that Aimovig initially helped but that starting toward the end of 2021, it stopped helping? b ad migraines returned to approximately the same monthly frequency as before starting Aimovig. In this context, I would have trouble getting the preauthorization necessary from insurance. Today, she agrees with this assessment. He has been scared that if she came off a moving there might be some reaction. Her next shot of monthly Aimovig was due yesterday, December 02 she reviews her migraine lo migraines in September, nine migraines in October, six migraines through December 02, and a migraine today, December 03. >>>>>>>>>> October 30, 2022Since initial neurology consultation September 30, 2022, she reports no change to her headaches.Presenting symptomatology is reviewed from initial neurology consultation September 30, 2022:Headaches began in her teenage years but were very periodic in her high school and college years. They increased in their morbidity in her 20s, enough so that she quit cigarettes thinking that would help sufficiently? i t did not. She did not know about migraines at that age. Understanding emerged in her 30s although the migraines continue to bother her.Migraine begins with brain fog? d ifficulty thinking, and frustration which she eventually realizes is part of her emerging bad migraine. If she does not use a breakthrough medication, terrible pain ensues, often starting in the right but sometimes it spreading throughout the whole head causing terrible pain, with light and sound sensitivity, nausea, forcing her to lie down and dark room. Without medication, she might still eventually get to sleep. If she does, migraine is gone at waking.However, she is on naratriptan for bad migraine breakthrough and this works well every time. She is on Aimovig for migraine prevention since ~November 2021. This seemed to work partially but noticeably made through February 2022 with 5-6 bad migraines per month as opposed to eight or more migraines per month previously. However, March 2022 through August 2022, she has had ~9 bad migraines per month, ranging 7-15 bad migraines per month.In addition, she gets lesser headaches frequently so that her total headache burden is consistently over 15 headache days per month.She has found benefit from chiropractic intervention from Dr. Brett Walsh and from massage (per chart, previous physical therapy for myofascial release was less helpful). She has noticed that certain foods trigger migraine but would like to be able to eat what she wants. Antolin Mcdonald MD [address] [place] [address] [place], [phone], [facility] 02/13/2023 08:21:01 03/13/2023 text/html Neurology follow -up of frequent episodic migraine without aura. History includes chart, insomnia and right benign parotid mass status postParotidectomy. She is a former cigarette smoker, quitting in her 20s. She is perimenopausal. >>>>>>>>>> March 13, 2023Since February 13, 2023 neurology follow-up encounter, the last of a series of 10 trigger point injection sessions starting on January 28, she has had four migraines over the ensuing 4 weeks. They each went away in 2 hours with naratriptan. They were all less intense than her previous migraines. Additionally, they were more on the left, less so on the right, a big difference from migraines and previous recent history.She had two additional events where she had prodrome symptoms and took psilocybin. Headache never emerged.She has been avoiding concert activity that has been particularly triggering. She has also been avoiding other activities that are triggers and she feels cut off from the normal enjoying aspects of her life. She did [place] but the stiffness of it associated with the beginning of some neck pain and she broke that climb off.She has continued her home exercises. She has not started or changed any medications or treatments with any other providers. >>>>>>>>>> January 06, 2023, most recent follow-up before starting trigger point injections:Since December 03, 2022 neurology follow-up encounter, she has remained off of Aimovig monthly subcutaneous injection for migraine prevention, December 03 through January 02, which has been her normal span of time for one monthly shot? s he is 4 days past that. She has had seven headaches, including 5 days in a row when she was patient came in on 30 mg/1.2 mg festival that was triggering of headaches. She also had 8 days in a row after that with no headaches at all. >>>>>>>>>> December 03, 2022Since October 30, 2022 neurology follow-up encounter, the patient contacted me patient portal, asking me to take over management of a moving as her former neurologist is no longer able to manage that medication. I replied that my understanding from reviewing the chart is that Aimovig initially helped but that starting toward the end of 2021, it stopped helping? b ad migraines returned to approximately the same monthly frequency as before starting Aimovig. In this context, I would have trouble getting the preauthorization necessary from insurance. Today, she agrees with this assessment. He has been scared that if she came off a moving there might be some reaction. Her next shot of monthly Aimovig was due yesterday, December 02 she reviews her migraine lo migraines in September, nine migraines in October, six migraines through December 02, and a migraine today, December 03. >>>>>>>>>> October 30, 2022Since initial neurology consultation September 30, 2022, she reports no change to her headaches.Presenting symptomatology is reviewed from initial neurology consultation September 30, 2022:Headaches began in her teenage years but were very periodic in her high school and college years. They increased in their morbidity in her 20s, enough so that she quit cigarettes thinking that would help sufficiently? i t did not. She did not know about migraines at that age. Understanding emerged in her 30s although the migraines continue to bother her.Migraine begins with brain fog? d ifficulty thinking, and frustration which she eventually realizes is part of her emerging bad migraine. If she does not use a breakthrough medication, terrible pain ensues, often starting in the right but sometimes it spreading throughout the whole head causing terrible pain, with light and sound sensitivity, nausea, forcing her to lie down and dark room. Without medication, she might still eventually get to sleep. If she does, migraine is gone at waking.However, she is on naratriptan for bad migraine breakthrough and this works well every time. She is on Aimovig for migraine prevention since ~November 2021. This seemed to work partially but noticeably made through February 2022 with 5-6 bad migraines per month as opposed to eight or more migraines per month previously. However, March 2022 through August 2022, she has had ~9 bad migraines per month, ranging 7-15 bad migraines per month.In addition, she gets lesser headaches frequently so that her total headache burden is consistently over 15 headache days per month.She has found benefit from chiropractic intervention from Dr. Brett Walsh and from massage (per chart, previous physical therapy for myofascial release was less helpful). She has noticed that certain foods trigger migraine but would like to be able to eat what she wants. Antolin Mcdonald MD [address] [place] [address] [place], [phone], [place] [facility] 03/13/2023 12:39:54 05/12/2023 text/html Neurology follow -up of frequent episodic migraine without aura. History includes chart, insomnia and right benign parotid mass status postParotidectomy. She is a former cigarette smoker, quitting in her 20s. She is perimenopausal. >>>>>>>>>> May 12 2023Since March 13, 2023 neurology follow-up encounter, she reports that moderate migraines only have continue to occur since end of January conclusion of a series of trigger point injection sessions for the muscular triggers for her migraines. She has recorded 10 migraines in February, three in March and three so far through 3.5 weeks of April. She has substituted rizatriptan for the naratriptan and she likes the rizatriptan much better: It works much faster, within an hour. During that hour, she is not debilitated.She adds a caveat: She has had that this good situation has occurred in the context of very cautious pursuing of daily activities: No vigorous activities such as climbing [place]; no music festivals.I had recorded from all March 13 discussion that she had for moderate migraines, ~1/week, March 13-February 13-March 13. I ask how the total for February reached 10 during the seven remaining days of February. Had she had a cluster? She does not remember. >>>>>>>>>> March 13, 2023Since February 13, 2023 neurology follow-up encounter, the last of a series of 10 trigger point injection sessions starting on January 28, she has had four migraines over the ensuing 4 weeks. They each went away in 2 hours with naratriptan. They were all less intense than her previous migraines. Additionally, they were more on the left, less so on the right, a big difference from migraines and previous recent history.She had two additional events where she had prodrome symptoms and took psilocybin. Headache never emerged.She has been avoiding concert activity that has been particularly triggering. She has also been avoiding other activities that are triggers and she feels cut off from the normal enjoying aspects of her life. She did try to [place] but the stiffness of it associated with the beginning of some neck pain and she broke that climb off.She has continued her home exercises. She has not started or changed any medications or treatments with any other providers. >>>>>>>>>> January 06, 2023, most recent follow-up before starting trigger point injections:Since December 03, 2022 neurology follow-up encounter, she has remained off of Aimovig monthly subcutaneous injection for migraine prevention, December 03 through January 02, which has been her normal span of time for one monthly shot? s he is 4 days past that. She has had seven headaches, including 5 days in a row when she was patient came in on 30 mg/1.2 mg festival that was triggering of headaches. She also had 8 days in a row after that with no headaches at all. >>>>>>>>>> December 03, 2022Since October 30, 2022 neurology follow-up encounter, the patient contacted me patient portal, asking me to take over management of a moving as her former neurologist is no longer able to manage that medication. I replied that my understanding from reviewing the chart is that Aimovig initially helped but that starting toward the end of 2021, it stopped helping? b ad migraines returned to approximately the same monthly frequency as before starting Aimovig. In this context, I would have trouble getting the preauthorization necessary from insurance. Today, she agrees with this assessment. He has been scared that if she came off a moving there might be some reaction. Her next shot of monthly Aimovig was due yesterday, December 02 she reviews her migraine lo migraines in September, nine migraines in October, six migraines through December 02, and a migraine today, December 03. >>>>>>>>>> October 30, 2022Since initial neurology consultation September 30, 2022, she reports no change to her headaches.Presenting symptomatology is reviewed from initial neurology consultation September 30, 2022:Headaches began in her teenage years but were very periodic in her high school and college years. They increased in their morbidity in her 20s, enough so that she quit cigarettes thinking that would help sufficiently? i t did not. She did not know about migraines at that age. Understanding emerged in her 30s although the migraines continue to bother her.Migraine begins with brain fog? d ifficulty thinking, and frustration which she eventually realizes is part of her emerging bad migraine. If she does not use a breakthrough medication, terrible pain ensues, often starting in the right but sometimes it spreading throughout the whole head causing terrible pain, with light and sound sensitivity, nausea, forcing her to lie down and dark room. Without medication, she might still eventually get to sleep. If she does, migraine is gone at waking.However, she is on naratriptan for bad migraine breakthrough and this works well every time. She is on Aimovig for migraine prevention since ~November 2021. This seemed to work partially but noticeably made through February 2022 with 5-6 bad migraines per month as opposed to eight or more migraines per month previously. However, March 2022 through August 2022, she has had ~9 bad migraines per month, ranging 7-15 bad migraines per month.In addition, she gets lesser headaches frequently so that her total headache burden is consistently over 15 headache days per month.She has found benefit from chiropractic intervention from Dr. Brett Walsh and from massage (per chart, previous physical therapy for myofascial release was less helpful). She has noticed that certain foods trigger migraine but would like to be able to eat what she wants. Antolin Mcdonald MD [address] [place] [address], [phone], [facility] 05/12/2023 17:18:06 OBGyn Episode No OBEpisode recorded.
--- OUTSIDE RECORDS SUMMARY | 2024-11-23 08:09 | XMS_ITS | Patient Health Record ---
Author Organization [facility] Address [address] [place] [address] Support Name Relationship Address Phone [facility] [address], [place] [phone] Danita Das Guarantor Unknown [phone] Reason For Referral No Information Medications Medication SIG (Take, Route, Frequency, Duration) Notes Start Date End Date Status NARATRIPTAN HCL 2.5 MG TABLET 9 1 po at onset of migraine MR once in 2 hours for 30 *please review for potential update for e-prescription and drug interaction check* 10/15/2016 Active AMITRIPTYLINE HCL 10 MG TAB 90 1/2 -3 po qhs for 30 *please review for potential update for e-prescription and drug interaction check* 10/15/2016 Active Plan Of Treatment No Information Insurance Providers Payer Name Payer Address Payer Phone Subscriber Number Group Number Insured Name Patient Relationship to Insured Coverage Start Date Coverage End Date [employer] OF [place] [address] [place], [place] [id number] Danita Das Self - patient is the insured Medical (General) History Surgical History Surgery Date(Month/Year) finger Prior surgeries include finger Pr ior surgeries include 2016-08-20 Prior surgeries include finger Prior tanya geries include finger 2016-10-15
== END 2024-11-23 09:02 | disposition home or self-care (01) ==
LOC: HO.HSMS 08:05
PROVIDERS: PCP Nurse Practitioner Primary Care; Visit Provider Nurse Practitioner Family
DX: G43.719 Chronic migraine without aura, intractable, without status migrainosus (principal); G43.109 Migraine with aura, not intractable, without status migrainosus; G47.33 Obstructive sleep apnea (adult) (pediatric); G24.3 Spasmodic torticollis
CPT/HCPCS: 99214

== ENCOUNTER → 2024-11-23 08:04 | Outpatient (BNVA) | payer OTHER, SELFPAY | PROVIDERS: PCP Nurse Practitioner Primary Care; Visit Provider Nurse Practitioner Family ==

== ENCOUNTER 2025-05-19 09:01 | Outpatient (AMB) | payer OTHER, SELFPAY ==
[2025-05-19 09:03] VITALS: BP 120/74; PULSE 59; O2SAT 99
--- NOTE | 2025-05-19 09:03 | A.OFFVIS_ITS ---
Vital Signs 05/19/25 09:03 Height 5 ft 4 in BP 120/74 Blood Pressure Location Rt brachial Position Sitting Pulse 59 Pulse Source Pulse Oximeter Pulse Oximetry (%) 99 Oxygen Delivery Method Room Air Intake Visit Reasons: Med concerns Hand Candy Cutter Required: No Accompanied by: Self / Same As Patient Allergies nitrofurantoin (From Macrobid) Allergy (Unknown, Verified 05/19/25 09:11) Unknown Penicillins Allergy (Unknown, Verified 05/19/25 09:11) Unknown Medication List - Last Reconciled 05/19/25 by JEFFREY Das [Bioidentical HRT, pregnenolone (2.5mg), progesterone (20 mg), testosterone (0.5mg) PO .DAILY] atorvastatin 40 mg PO BEDTIME lorazepam 0.5 mg PO DAILY PRN mecobalamin (vitamin B12) mcg PO DAILY melatonin 3 mg PO BEDTIME naratriptan 2.5 mg PO Q4H PRN 30 days propranolol 20 mg (2 x 10 mg) PO BID 30 days rimegepant (Nurtec ODT) 75 mg PO Q OTHER DAY 32 days HPI Comments Details: 49-yr-old female presents for f/u for migraine and GREG. After the last visit, she had reached out to the office with worsening headache symptoms in the [place] . Today, she clarifies that air travel has always provoked headaches. She also notes chronic history of motion sickness, now can occur whether or not she is the 1 driving. She did not tolerate trial of topiramate. She was then tried on candesartan, which was ineffective. While on candesartan, she had held propranolol. Thus, in Mar, she started Nurtec QOD for prevention. Then, she resumed propranolol, which initially caused some orthostatic lightheadedness and head dewey sensation when bending over or getting up. However, she has been able to slowly increase the Propranolol to 20mg bid (this dose since Apr 30). Her heart rate today's 59. She restarted Cefaly, which feels good on her head, however the linh often shuts down. She has a Cefaly coaching session next week. She started an online yoga for migraine about 2 weeks ago, which she is already finding helpful. In early 2024, her monthly migraine attack frequency was 14-16 days per month. Since the summer, migraine frequency has been 8-9 days per month. She is using naratriptan most every time that she has a migraine attack PFSH Surgical History H/O parotidectomy Family History Mother Hx of migraines Father Heart disease Social History Alcohol intake: never Patient Tobacco Use Status: Never used Tobacco Substance Use Type: Marijuana Physical Exam Vital Signs: Last Vital Signs Pulse 59 05/19/25 09:03 BP 120/74 05/19/25 09:03 Pulse Ox 99 05/19/25 09:03 Oxygen Delivery Method Room Air 05/19/25 09:03 Const General: cooperative and no acute distress Orientation/consciousness: patient oriented x3 Resp Effort & Inspection: normal respiratory effort and able to speak in complete sentences Neuro Other: No visible cervical dystonia or tics. General: patient oriented x3 and moves all extremities Cranial nerves: Yes CN's II-XII intact bilaterally Cognition (Neuro): normal cognition Gait exam (Neuro): Normal gait present Psych Appearance: grossly normal Mental Status: mental status grossly normal Speech and movement: Normal speech and movement present Affect: normal affect Attitude: cooperative Thought process: Normal thought process present Assessment & Plan Assessment & Plan (1) Chronic migraine without aura: Code(s): G43.709 - Chronic migraine without aura, not intractable, without status migrainosus Category: Medical Qualifiers: Intractability: intractable Status migrainosus presence: without status migrainosus Qualified Code(s): G43.719 - Chronic migraine without aura, intractable, without status migrainosus (2) Migraine with aura: Comment: Twice has had aura Code(s): G43.109 - Migraine with aura, not intractable, without status migrainosus Category: Medical Qualifiers: Status migrainosus presence: without status migrainosus Intractability: not intractable Qualified Code(s): G43.109 - Migraine with aura, not intractable, without status migrainosus (3) Mild obstructive sleep apnea: Comment: 02/19/2023, HST: AHI 5 per hour, O2 arabella 80%, average O2 sat 92%. Code(s): G47.33 - Obstructive sleep apnea (adult) (pediatric) Category: Medical (4) Cervical dystonia: Code(s): G24.3 - Spasmodic torticollis Category: Medical (5) Benign paroxysmal vertigo, unspecified ear: Comment: Motion sickness Code(s): H81.10 - Benign paroxysmal vertigo, unspecified ear Category: Medical Qualifiers: Laterality: unspecified laterality Qualified Code(s): H81.10 - Benign paroxysmal vertigo, unspecified ear Plan For GREG and sleep difficulties: Pt did not tolerate Somnoguard- will monitor clinically for now as sleep apnea is mild. ? For cervical dystonia/head tic s/s: Improved. We will monitor, as patient comes off of Botox therapy. For motion sickness a/w nausea and dizziness: * Vestibular PT eval and treat ? For overall headache management: * Continue to optimize good self-care, including but not limited to maintaining a healthy diet, adequate fluid intake, adequate sleep, and engaging in regular physical activity. * Continue to track headaches. * Continue light sensitivity strategies, such as green light therapy. * Continue Cefaly device as needed. Hopefully the Cefaly coaching session can troubleshoot her difficulty with the linh. * Continue online yoga for migraine * Other considerations: * acceptance and commitment therapy- patient has previously not been interested * information previously shared on local biofeedback clinic in [place]- patient will reach out. For acute headache treatment: * Continue Naratriptan p.r.n. Acute migraine medication contraindications: Sumatriptan caused significant nausea. Zomig- ineffective and not tolerated. Nurtec effective, stopped due to conversion to prevention therapy. Future considerations: Acetazolamide for air travel. ? For headache prevention medication: Slowly increase propranolol to Propranolol 30 mg p.o. b.i.d. * Monitor BP and heart rate. Hold for heart rate under 50 beats per minute Continue Rimegepant ODT (Nurtec ODT) 75mg, 1 tab every other day. Max of 1 tabs (75mg) per 24 hours. Previous migraine prevention medication trials: Topiramate IR not tolerated- cause cognitive difficulties. Amitriptyline- Ineffective. Aimovig- initially helpful but then effect waned. Mag and B2- ineffective. Botox- ineffective after 4 cycles and poorly tolerated. Topiramate- ineffective and poorly tolerated. Candesartan- ineffective. Migraine prevention medication contraindications: Nonspecific at this time Future considerations: low-dose verapamil or memantine. vyepti. ? Pt to follow-up in 3-6 months or sooner prn. Orders: Orders PT Evaluation and Treatment Today G24.3 - Spasmodic torticollis, G43.009 - Migraine without aura, not intractable, without status migrainosus, H81.10 - Benign paroxysmal vertigo, unspecified ear Coding Level of Care Code Est Pt Level 4 (88092) Diagnoses Intractable chronic migraine without aura and without status migrainosus G43.719 Intractability: intractable Status migrainosus presence: without status migrainosus Migraine with aura and without status migrainosus, not intractable G43.109 Status migrainosus presence: without status migrainosus Intractability: not intractable Mild obstructive sleep apnea G47.33 Cervical dystonia G24.3 Benign paroxysmal vertigo, unspecified laterality H81.10 Laterality: unspecified laterality
--- OUTSIDE RECORDS SUMMARY | 2025-05-19 10:01 | XMS_ITS | Patient Health Record ---
Author Organization [facility] Address [address] [place] [address] Support Name Relationship Address Phone Kat[facility] Emergency Contact [address] [place], [place] [id number] Danita Das Guarantor Unknown [phone] Reason For Referral No Information Medications Medication SIG (Take, Route, Frequency, Duration) Notes Start Date End Date Status NARATRIPTAN HCL 2.5 MG TABLET 9 1 po at onset of migraine MR once in 2 hours; Duration: 30 *please review for potential update for e-prescription and drug interaction check* 10/15/2016 Active AMITRIPTYLINE HCL 10 MG TAB 90 1/2 -3 po qhs; Duration: 30 *please review for potential update for e-prescription and drug interaction check* 10/15/2016 Active Plan Of Treatment No Information Insurance Providers Payer Name Payer Address Payer Phone Subscriber Number Group Number Insured Name Patient Relationship to Insured Coverage Start Date Coverage End Date [employer] OF [place] [address] [place], [place] [id number] Danita Das Self - patient is the insured Medical (General) History Surgical History Surgery Date(Month/Year) finger Prior surgeries include finger Pr ior surgeries include 2016-08-20 Prior surgeries include finger Prior tanya geries include finger 2016-10-15
--- OUTSIDE RECORDS SUMMARY | 2025-05-19 10:02 | XMS_ITS | Encounter Summary ---
Author Organization [facility] Address [address] [facility] [address] [place] [address] Phone Care Team Providers Care Panel Edge Sealer Name Role Phone Katia Mock MD Primary Care Provider Nancy Jalloh DO Unavailable Anne Will STEEPING PRESS OPERATOR Unavailable Trudy Leavitt STEEPING PRESS OPERATOR Unavailable Estefany Lofton SPECIALTY SALES CONSULTANT Unavailable Luis Enrique Malcolm MD Unavailable [phone] Katia Mock MD Unavailable [phone] Nik Malcolm MD Unavailable Katia Mock MD Unavailable Savi Lau CNP Primary Care Provider + Katia Mock MD Primary Care Provider Alejandro Heath MD Primary Care Provider [phone] Savi Lau CNP Primary Care Provider + Encounter Details Date Type Department Care Team (Late st Contact Info) Description 04/14/2018 Procedure Pass [facility] [address] [place] [address] Social History Tobacco Use Types Packs/Day Years Used Date Smoking Tobacco: Former Smokeless Tobacco: Never Alcohol Use Standard Drinks/Week Comments Yes 0 (1 standard drink = 0.6 oz pur e alcohol) Comments Unknown Sex and Gender Information Value Date Recorded Sex Assigned at Not on file Legal Sex Female 5:21 PM EST Gender Identity Genderqueer/Queer 12/08/2019 8:3 9 AM EDT Sexual Orientation Not on file documented as of this encounter Last Filed Vital Signs Vital Sign Reading Time Taken Comments Blood Pressure - - Pulse - - Temperature - - Respiratory Rate - - Oxygen Saturation - - Inhaled Oxygen Concentration - - Weight 86.2 kg (190 lb) 04/17/2018 2:00 PM EDT Height 162.6 cm (5' 4 ) 04/17/2018 2:00 PM EDT Body Mass Index 32.61 04/17/2018 2:00 PM EDT documented in this encounter Plan of Treatment Upcoming Encounters Date Type Department Care Team (Late st Contact Info) Description 06/08/2025 10:00 AM EST Office Visit [address] [address] Estefany Lofton [address] [address] [email or web address] 11/09/2025 9:30 AM EDT Office Visit [address] [address] Estefany Lofton SPECIALTY SALES CONSULTANT [address] [place] [address] documented as of this encounter Visit Diagnoses Not on filedocumented in this encounter Care Teams Panel Edge Sealer Relationship Specialty Start Date End Date Katia Mock MD [address] [place] [address] [email or web address] PCP - General 05/05/17 06/06/22 Savi Lau, ALEC [address] [place] [address] [address] [id number] [email or web address] PCP - General Family Medicine 06/07/22 06/18/22 Katia Mock MD [address] [place] [address] [address] [place] [address] [email or web address] PCP - General Family Medicine 06/19/22 06/20/22 Alejandro Heath MD [address] [place] [address] [place] [address] [email or web address] PCP - General Family Medicine 06/21/22 07/09/22 Savi Lau, ALEC [address] [place] [address] [address] [place] [address] [email or web address] PCP - General Family Medicine 07/10/22 Nancy Jalloh DO [address] [place] [address] 7 [place] [address] [email or web address] Historical LMR Provider 05/10/17 07/28/21 Anne Will NP [address] [place] [address] Historical LMR Provider 05/10/17 Trudy Dunn NP [address] [place] [address] [email or web address] Historical LMR Provider 05/10/17 2 Rolly JEFFREY Wilson [address] [place] [address] 7 [place] Kraus [phone] [email or web address] Historical LMR Provider 05/10/17 07/28/21 Luis Enrique Malcolm MD [address] [place] [address] 7 ANNELIEES KRAUS [phone] [email or web address] Historical LMR Provider 05/10/17 Katia Mock MD [address] [place] [address] 7 [address] [address] [email or web address] Historical LMR Provider 05/10/17 Nik Malcolm MD [address] [place], [place] [address] ANNELIESE KRAUS [phone] [email or web address] Historical LMR Provider 05/10/17 07/28/21 Katia Mock MD [address] [place] [address] 7 [address] [address] [email or web address] Insurance Assigned Provider 06/21/18 08/20/19 documented as of this encounter Additional Source Comments The information contained in this document represents components of the legal health record. It is not the complete legal health record.[email or web address]
--- OUTSIDE RECORDS SUMMARY | 2025-05-19 10:02 | XMS_ITS | Encounter Summary ---
Author Organization [facility] Address [address] [place] [address] Phone Care Team Providers Care Retail Client Manager Name Role Phone Luis Enrique Malcolm MD Unavailable Katia Mock MD Unavailable Savi Lau [facility] Primary Care Provider + Encounter Details Date Type Department Care Team (Late st Contact Info) Description 11/10/2023 Procedure Pass [facility] [address] [place] [address] Social History Tobacco Use Types Packs/Day Years Used Date Smoking Tobacco: Former Cigarettes Q uit: 2010 Smokeless Tobacco: Never Alcohol Use Standard Drinks/Week Comments Not Currently 0 (1 standard drink = 0.6 oz pur e alcohol) Child or Family Care Answer Date Record ed Do you have problems with on e of the following making it difficult for you to work, study, or receive health care? No 05/30/2023 Education Answer Date Recorded Are you interested in help w ith more adult education (for example, completing high school, GED, job training, learning the Yi language, technical skills, or developing parenting skills)? No 05/30/2023 Are you concerned about learning? Not on file 05/30/2023 No 05/30/2023 Yes 05/30/2023 Food Answer Date Recorded Within the past 6 months we worried whether our food would run out before we got money to buy more. Never True 05/30/2023 Within the past 6 months the food we bought just didn't last and we didn't have enough money to get more. Never True Residential Stability Answer Date Recor ded What is your housing situation today? I have tammy shah 05/30/2023 How many times have you moved in the past 12 fri th? One time 05/30/2023 Paying for Meds Answer Date Recorded Do you have trouble paying for medicines? No 05/30/2023 Paying Utility Bills Answer Date Record ed Do you have trouble paying your heating or elect ricity bill? No 05/30/2023 Transportation Answer Date Recorded Has the lack of transportati on kept you from medical appointments or from getting medications? No 05/30/2023 Unemployment Answer Date Recorded Are you currently unemployed or working on a part-time or temporary basis, and looking for work? No 05/29/2022 Digital Access Answer Date Recorded No 05/30/2023 Yes 05/30/2023 Do you have reliable internet access at home? Ye s 05/30/2023 Do you have a device (e.g., phone, tablet, computer) with a working camera? Yes 05/30/2023 Comments No Sex and Gender Information Value Date Recorded Sex Assigned at Not on file Legal Sex Female 5:21 PM EST Gender Identity Genderqueer/Queer 12/08/2019 8:3 9 AM EDT Sexual Orientation Not on file documented as of this encounter Plan of Treatment Upcoming Encounters Date Type Department Care Team (Late st Contact Info) Description 06/08/2025 10:00 AM EST Office Visit [facility] [address] [place] [address] Estefany Lofton FNP 234 [facility] 7 [place] [address] [email or web address] 11/09/2025 9:30 AM EDT Office Visit [address] [address] Estefany Lofton FNP 234 [facility] 7 [place] [address] [email or web address] documented as of this encounter Visit Diagnoses Not on filedocumented in this encounter Additional Health Concerns Assessment Noted Time PHQ-2 Depression Total Score: 2 06/06/20 23 8:59 AM EST documented as of this encounter Care Teams Retail Client Manager Relationship Specialty Start Date End Date Savi Lau CNP 234 [facility] 7 [place] [address] [email or web address] PCP - General Family Medicine 07/10/22 Luis Enrique Malcolm MD [address] [place], [place] [address] [address] [email or web address] Historical LMR Provider 05/10/17 Katia Mock MD [address] [place] [address] [address] [place] [address] [email or web address] Historical LMR Provider 05/10/17 documented as of this encounter Additional Source Comments The information contained in this document represents components of the legal health record. It is not the complete legal health record.[facility]
--- OUTSIDE RECORDS SUMMARY | 2025-05-19 10:02 | XMS_ITS | Encounter Summary ---
Author Organization [facility] Address [address] [place] [address] Phone Care Team Providers Care Solar Installer Name Role Phone Luis Enrique Malcolm MD Unavailable [phone] Katia Mock MD Unavailable Savi Lau FUR MACHINE OPERATOR Primary Care Provider + Encounter Details Date Type Department Care Team (Late st Contact Info) Description 06/06/2023 Procedure Pass [address] [address] Social History Tobacco Use Types Packs/Day Years [...] high school, GED, job training, learning the [place] language, technical skills, or developing parenting skills)? [...] have you moved in the past 12 fri? One time 05/30/2023 Paying for Meds Answer [...] Description 06/08/2025 10:00 AM EST Office Visit [facility] [address] [place] [address] Estefany Lofton FNP 234 [facility], [facility] 7 [place] [address] 11/09/2025 9:30 AM EDT Office Visit [address] [place] [address] Estefany Lofton FNP 234 [facility], [address] [place] [address] [email or web address] documented as of this encounter Visit Diagnoses Not on filedocumented in this encounter Additional Health Concerns Assessment Noted Time PHQ-2 Depression Total Score: 2 06/06/20 23 8:59 AM EST documented as of this encounter Care Teams Solar Installer Relationship Specialty Start Date End Date Savi Lau CNP 234 [facility] 7 [place] [address] [email or web address] PCP - General Family Medicine 07/10/22 Luis Enrique Malcolm MD [address] [place] [address] [place] [phone] [email or web address] Historical LMR Provider 05/10/17 Katia Mock MD [address] [place] [address] 7 [place] [address] [email or web address] Historical LMR Provider 05/10/17 documented as of this encounter Additional Source Comments The information contained in this document represents components of the legal health record. It is not the complete legal health record.[facility]
--- OUTSIDE RECORDS SUMMARY | 2025-05-19 10:02 | XMS_ITS | Encounter Summary ---
Author Organization [facility] Address [address] [facility] [address] [place] [address] Phone Care Team Providers Care Key Worker Name Role Phone Katia Mock MD Primary Care Provider Nancy Jalloh DO Unavailable Anne Will DRAWING IN HAND Unavailable Trudy Leavitt DRAWING IN HAND Unavailable Estefany Lofton HOSPITAL LABORATORY TECHNICIAN Unavailable Luis Enrique Malcolm MD Unavailable Katia Mock MD Unavailable Nik Malcolm MD Unavailable Savi Lau CNP Primary Care Provider + Katia Mock MD Primary Care Provider [phone] Alejandro Heath MD Primary Care Provider [phone] Savi Lau SYSTEM MANAGER Primary Care Provider + Encounter Details Date Type Department Care Team (Late st Contact Info) Description 02/27/2021 Procedure Pass [facility], [facility] Scan [address] [address] Social History Tobacco Use Types Packs/Day Years Used Date Smoking Tobacco: Former Smokeless Tobacco: Never Alcohol Use Standard Drinks/Week Comments Yes 0 (1 standard drink = 0.6 oz pur e alcohol) Child or Family Care Answer Date Record ed Do you have problems with on e of the following making it difficult for you to work, study, or receive health care? No 12/22/2018 Education Answer Date Recorded Are you interested in help w ith more adult education (for example, completing high school, GED, job training, learning the Latv[place] language, technical skills, or developing parenting skills)? Yes 12/22/2018 Are you concerned about learning? Not on file 12/22/2018 Food Answer Date Recorded Within the past 6 months we worried whether our food would run out before we got money to buy more. Never True 12/22/2018 Within the past 6 months the food we bought just didn't last and we didn't have enough money to get more. Never True 9 Paying for Meds Answer Date Recorded Do you have trouble paying for medicines? No 12/22/2018 Paying Utility Bills Answer Date Record ed Do you have trouble paying your heating or elect ricity bill? No 12/22/2018 Transportation Answer Date Recorded Has the lack of transportati on kept you from medical appointments or from getting medications? No 12/22/2018 Comments Unknown Sex and Gender Information Value Date Recorded Sex Assigned at Not on file Legal Sex Female 5:21 PM EST Gender Identity Genderqueer/Queer 12/08/2019 8:3 9 AM EDT Sexual Orientation Not on file documented as of this encounter Plan of Treatment Upcoming Encounters Date Type Department Care Team (Late st Contact Info) Description 06/08/2025 10:00 AM EST Office Visit [facility] 234 [place] [address] Estefany Lofton FNP 234 [facility], [address] [place] [address] 11/09/2025 9:30 AM EDT Office Visit [facility] [address] [place] [address] Rolly Estefany Jenni, HOSPITAL LABORATORY TECHNICIAN 234 [facility], [facility] 7 [place] [address] [email or web address] documented as of this encounter Visit Diagnoses Not on filedocumented in this encounter Additional Health Concerns Assessment Noted Time PHQ-2 Depression Total Score: 0 04/23/20 19 11:24 AM EDT documented as of this encounter Care Teams Key Worker Relationship Specialty Start Date End Date Katia Mock MD [address] [place] [address] 7 [place] [phone] [email or web address] PCP - General 05/05/17 06/06/22 Savi Lau, ALEC [address] [place] [address] [place] [phone] [email or web address] PCP - General Family Medicine 06/07/22 06/18/22 Katia Mock MD [address] [place] [address] 7 [place] [address] [email or web address] PCP - General Family Medicine 06/19/22 06/20/22 Alejandro Heath MD [address] [place] [address] 7 [place] [phone] [email or web address] PCP - General Family Medicine 06/21/22 07/09/22 Savi Lau, ALEC [address] [place] [address] [place] [address] [email or web address] PCP - General Family Medicine 07/10/22 Nancy Jalloh DO [address] [place] [address] 7 [place] [address] [email or web address] Historical LMR Provider 05/10/17 07/28/21 Anne Will NP [address] [place] [address] Historical LMR Provider 05/10/17 2 Trudy Leavitt NP [address] [place] [address] [email or web address] Historical LMR Provider 05/10/17 2 Estefany Lofton FNP [address] [place] [address] 7 [place] [address] [email or web address] Historical LMR Provider 05/10/17 07/28/21 Luis Enrique Malcolm MD [address] [place] [address] 7 [place] [phone] [email or web address] Historical LMR Provider 05/10/17 Katia Mock MD [address] [place] [address] 7 [place] [address] [email or web address] Historical LMR Provider 05/10/17 Nik Malcolm MD [address] [place] [address] [address] [place] [phone] [email or web address] Historical LMR Provider 05/10/17 07/28/21 documented as of this encounter Additional Source Comments The information contained in this document represents components of the legal health record. It is not the complete legal health record.[facility]
--- OUTSIDE RECORDS SUMMARY | 2025-05-19 10:02 | XMS_ITS | Clinical Summary ---
Author Organization [facility] Address [address] [place] [address] Phone Care Team Providers Care Farm Assistant Name Role Phone Luis Enrique Malcolm MD Unavailable [phone] Katia Mock MD Unavailable [phone] Savi Lau [facility] Primary Care Provider + Allergies Active Allergy Reactions Criticality Noted Date Comments Epinephrine Palpitations Low 08/01/2023 Nitrofurantoin Monohyd/M-Cryst Dizziness,Nausea and/or Vomiting 12/02/2017 Penicillins 09/11/2017 Medications Medication-Free Text Medical Marijuana Active naratriptan (AMERGE) 2.5 MG tabletIndications:Intra ctable migraine without aura and without status migrainosus TAKE 1 TABLET BY MOUTH AT ONSET OF MIGRAINE NEEDED - IF IT RETURNS OR DOES NOT RESOLVE, MAY REPEAT 4 HOURS LATER*DO NOT EXCEED 2 TABLETS IN A 24 HOUR PERIOD* 9 tablet 5 023 Active Medication-Free Text Psilocybin prn Active propranoloL (INDERAL) 10 MG immediate release tablet Take 20 mg by mouth 2 (two) times a day. 024 Active NURTEC ODT 75 mg tablet Take 75 mg by mouth as needed. 024 Active cholecalciferol (VITAMIN D3) 10,000 unit tablet Take 10,000 Units by mouth daily. Active cyanocobalamin, vitamin B-12, 100 MCG tablet Take 100 mcg by mouth daily. Active Medication-Free Text 2 (two) times a day. Bioestimated hormone replacement therapy Active ciclopirox (PENLAC) 8 % solution APPLY TOPICALLY AT BEDTIME - APPLY OVER NAIL AND SURROUNDING SKIN DAILY OVER THE PREVIOUS COAT. AFTER 7 DAYS REMOVE WITH ALCOHOL AND CONTINUE CYCLE 6.6 mL 024 Active Additional Information Patient not taking.Reported on 12/29/2024 LORazepam (ATIVAN) 0.5 MG tabletIndications:Migra ine with aura and without status migrainosus, not intractable TAKE 1 TABLET BY MOUTH EVERY 6 HOURS NEEDED FOR ANXIETY 10 tablet 025 Active atorvastatin (LIPITOR) 40 MG tabletIndications:Pure hypercholesterolemia TAKE ONE TABLET BY MOUTH EVERY DAY 90 tablet 025 Active Active Problems Problem Noted Date Diagnosed Date Postmenopausal bleeding 04/27/2024 Overview (12/29/2024): On HRT (compounded lozenge of estradiol, testosterone, progesterone)-on follow- up visit in December 2024 she noted this does not have estradiol but has pregnenolone, 20 mg progesterone and testosterone Had D&C hysteroscopy June 2024 with removal of some small polyps Assessment & Plan (12/29/2024 3:34 PM EDT): Given the HPI, it is possible she was not fully postmenopausal when she started HRT however their evaluation with an ultrasound is still warranted. If lining is very thin, repeat tissue sampling would not be indicated. I would have her return to the integrative medicine practitioners to talk about adjusting this regimen given the recurrent bleeding Assessment & Plan (04/27/2024 1:14 PM EDT): Discussed hysteroscopy polypectomy D&C with risks of infection bleeding pain injury to internal organs. Recovery also discussed. Will plan sonohysterogram between now and this procedure, to better delineate this area Cyst of left ovary 04/27/2024 Overview (04/27/2024): Incidental finding on ultrasound for postmenopausal bleeding, 2.7 cm, appears benign hemorrhagic Assessment & Plan (04/27/2024 1:13 PM EDT): Will recheck on ultrasound in approximately a month Endometrial polyp 04/27/2024 Assessment & Plan (06/07/2024 8:43 AM EST): Sonohystogram not able to be completed, pending [employer] procedure. I will ask nursing to try to assist with getting her in contact with [employer] REL[employer] for scheduling. Urticaria 08/20/2023 Assessment & Plan (09/09/2023 2:09 PM EST): Labs without findings, continues to have unclear etiology. Referral to inside account executive for further testing. She should continue antihistamines as she has been doing. We did discuss symptoms of anaphylaxis that would require emergency care. Follow up as needed or if unable to see inside account executive in the next few weeks. Assessment & Plan (08/20/2023 12:06 PM EST): No hives present on assessment. She is quite unnerved by the fact that she doesn't know what is causing this and that it has continued for so long.I advised she stop new medications. She will start taking a daily antihistamine in the hopes of preventing hives reoccurrence for two weeks. She would really like labs done, given her concern I think it is reasonable to check labs now rather than waiting. I did discuss that we cannot always find the cause of symptoms and she understands. She will notify the office if symptoms worsen or do not improve after the two weeks, did discuss when she would need to be seen in the ED. If not having improvement and there is not lab abnormalities to further work up I will refer her to an inside account executive. Prediabetes 06/19/2023 Pure hypercholesterolemia 06/12/2021 Pulmonary nodule 1 cm or greater in diameter Overview (06/12/2021): Incidentally seen on CT of chest. Looked benign but 12 month followup recommended. Bilateral adrenal adenomas 06/12/2021 Overview (06/12/2021): Incidentally seen on CT of chest. MRI of abdomen showed benign appearing adenomas. Multinodular thyroid 05/28/2019 Overview (05/28/2019): Thyroid nodule incidentally seen on CT of neck 06/08. She has 4 sub centimeter nodules and 1 2cm nodule. None of these require aspiration at this time. Assessment & Plan (11/22/2023 3:01 PM EDT): Patient was seen for incidentally found left [address] neck in 04/2019. Largest nodule 2 cm TR 1 in the left mid lobe on ultrasound in 05/2019. Patient had yearly ultrasounds, last done on 06/18/2024, images reviewed. No significant change in the left mid nodule, currently measuring 2.2 x 1.2 x 1.4 cm and rated as TI- RADS 4, it is changing the contour of the thyroid and seems more protuberant compared to previous images. There is a lower isthmus 1.2 cm TR 4 nodule and a 9 mm right mid TR 4 nodule, both stable. No history of radiation exposure to the head and neck nor family history of thyroid cancer. She is clinically and biochemically euthyroid. Last TSH 1.81 in 08/2023. Considering the size of the left mid TI-RADS 4 nodule recommended to do ultrasound-guided FNA what patient agreed with. Will schedule through [facility] interventional radiology. We reviewed the possible biopsy outcomes and further steps depending on cytology report. Will communicate about results through [place]. Assessment & Plan (05/31/2020 3:22 PM EST): Recent ultrasound shows one new nodule that requires 1y followup. The other nodules are stable. Other insomnia 01/14/2018 Migraine with aura and witho ut status migrainosus, not intractable 01/14/2018 Assessment & Plan (06/07/2024 8:43 AM EST): Managed by neurology, medications not particularly helpful. We did discuss that HRT can make them worse, she is working with integrative medicine for those titrations. Assessment & Plan (07/10/2022 9:38 AM EST): Is attempting to find another neurologist for another opinion. Reports current abortive therapy works well but only has so many doses. Had 15 migraine days in May. Is increasing fluid intake, using chiropractor, massages, and is increasing physical activity. Continue this and follow up with neurology. Family history of ischemic h eart disease and other diseases of the circulatory system 07/25/2017 Resolved Problems Problem Noted Date Diagnosed Date Resolved Date Encounter to establish care 07/10/2022 02/21/2023 Assessment & Plan (07/10/2022 9:39 AM EST): No acute concerns today. Labs UTD. Follow up for annual physical. Allergic rhinitis 07/25/2017 02/27/2022 Encounters Date Type Department Care Team Description 03/07/2025 Refill [facility] [address] [place] [address] Savi Lau, ALEC Medication Refill from Last 3 Months Immunizations Immunization Administration Dates Next Due COVID-19 (Pre-05/12) Pfizer Vaccine, mRNA, PF 11/15/2020,10/14/2020 Hep A-Hep B 10/17/2010,09/14/2010 IPV 09/14/2010 Influenza Quadrivalent Prese rvative Free IM 06/03/2023,05/29/2022,04/19/2021,2019 Influenza Recombinant Nati valent Preservative Free IM 04/23/2019 MMR 09/14/2010 Td (adult) 5 Lf Tetanus Toxo id, PF, Adsorbed 03/25/2017 Td (adult),2 Lf Tetanus Toxo id, PF, Adsorbed 03/25/2017 Tdap 08/13/2007 Typhoid, ViCPs 03/22/2011 Family History Medical History Relation Comments Ashkenazi Mandaeism ancestry Father CV disease Father Hypertension Father Hyperlipidemia Mother Breast cancer Neg Hx Colon cancer Neg Hx Relation Status Comments Father Alive Mother Alive Social History Tobacco Use Types Packs/Day Years Used Date Smoking Tobacco: Former Cigarettes 0 08/09/1986 - 2009 Smokeless Tobacco: Never Tobacco Cessation:Counseling Given: Not Answered Alcohol Use Standard Drinks/Week Comments Not Currently 0 (1 standard drink = 0.6 oz pur e alcohol) Child or Family Care Answer Date Record ed Do you have problems with on e of the following making it difficult for you to work, study, or receive health care? No 06/07/2024 Education Answer Date Recorded Are you interested in help w ith more adult education (for example, completing high school, GED, job training, learning the Occitan language, technical skills, or developing parenting skills)? No 06/07/2024 Are you concerned about learning? Not on file 06/07/2024 No 06/07/2024 Yes 06/07/2024 Food Answer Date Recorded Within the past 6 months we worried whether our food would run out before we got money to buy more. Never True 06/07/2024 Within the past 6 months the food we bought just didn't last and we didn't have enough money to get more. Never True Residential Stability Answer Date Recor ded What is your housing situation today? I have tammy shah 06/07/2024 How many times have you move d in the past 12 months? Zero (I did not move) 06/07/2024 Paying for Meds Answer Date Recorded Do you have trouble paying for medicines? No 06/07/2024 Paying Utility Bills Answer Date Record ed Do you have trouble paying your heating or elect ricity bill? No 06/07/2024 Transportation Answer Date Recorded Has the lack of transportati on kept you from medical appointments or from getting medications? No 06/07/2024 Unemployment Answer Date Recorded Are you currently unemployed or working on a part-time or temporary basis, and looking for work? No 05/29/2022 Digital Access Answer Date Recorded No 06/07/2024 Yes 06/07/2024 Do you have reliable internet access at home? Ye s 06/07/2024 Do you have a device (e.g., phone, tablet, computer) with a working camera? Yes 06/07/2024 Intimate Partner Violence Answer Date R ecorded Are you denied basic needs s uch as food, clothing, or medical care? No 06/07/2024 In the past 12 months have y ou been in a relationship with a person who hurts, threatens, or tries to control you? No 06/07/2024 Are you denied basic needs s uch as food, clothing, or medical care? No 06/07/2024 In the past 12 months have y ou been in a relationship with a person who hurts, threatens, or tries to control you? No 06/07/2024 Comments No Sex and Gender Information Value Date Recorded Sex Assigned at Not on file Legal Sex Female 5:21 PM EST Gender Identity Genderqueer/Queer 12/08/2019 8:3 9 AM EDT Sexual Orientation Not on file Last Filed Vital Signs Vital Sign Reading Time Taken Comments Blood Pressure 100/62 12/29/2024 1:36 PM EDT Pulse 61 07/19/2024 11:47 AM EST Temperature 36.5 C (97.7 F) 07/19/2024 11:47 AM EST Respiratory Rate 9 07/19/2024 11:47 AM EST Oxygen Saturation 98% 07/19/2024 11:47 AM EST Inhaled Oxygen Concentration - - Weight 92.5 kg (204 lb) 06/24/2024 4:00 PM EST Height 162.6 cm (5' 4 ) 06/24/2024 4:00 PM EST Body Mass Index 35.02 06/24/2024 4:00 PM EST Plan of Treatment Upcoming Encounters Date Type Department Care Team (Late st Contact Info) Description 06/08/2025 10:00 AM EST Office Visit [address] [address] Estefany Lofton FNP [address] [address] 11/09/2025 9:30 AM EDT Office Visit [address] [address] Estefany Lofton FNP [address] [address] Health Maintenance Due Date Last Done Comments COLOGUARD 11/08/2019 FIT TEST 11/08/2019 FOBT 11/08/2019 SIGMOIDOSCOPY 11/08/2019 VIRTUAL COLONOSCOPY 11/08/2019 PNEUMOCOCCAL VACCINES (50+ years) (1 of 1 - PCV) 2024 ZOSTER VACCINES (1 of 2) 2024 INFLUENZA VACCINE (#1) 2025 , 05/29/2022, 04/19/2021, Additional history exists COVID-19 VACCINE ( season) 2025 07/23/2024, 06/03/2023, 04/17/2022, Additional history exists DEPRESSION SCREENING 06/07/2025 06/07/2024, 06/07/20 24 MAMMOGRAM 02/15/2026 02/15/2025, 10/21, 10/08/2022, Additional history exists SMOKING Hx and SMOKELESS TOBACCO SCREENING 02/15/2026 02/15/2025 SCREENING FOR DIABETES 12/08/2026 , 09/04/2023, 02/15/2016 Adult Td,Tdap Booster 03/25/2027 03/25/2017 , 03/25/2017, 08/13/2007 LIPID PANEL 12/08/2028 12/09/2023, 05/22, 02/14/2022, Additional history exists PAP SMEAR 04/07/2029 04/07/2024, 10/2018, 04/23/2019, Additional history exists COLONOSCOPY 11/27/2032 11/27/2022 COLORECTAL CANCER SCREENING 11/27/2032 RSV VACCINE (1 - 1-dose 75+ series) 2049 HEPATITIS A VACCINES Aged Out 10/17/2010, 09/14/19 11 No longer eligible based on patient's age to complete this topic HEPATITIS C SCREENING Completed 06/13/2023, 022 HIV ONE-TIME SCREENING (18-65 YEARS) Completed 06/13/2023, 02/05/2017 HIB VACCINES Aged Out No longer eligi ble based on patient's age to complete this topic MENINGOCOCCAL VACCINES (ACWY) Aged Out No longer eligible based on patient's age to complete this topic MENINGOCOCCAL VACCINES (B) Aged Out N o longer eligible based on patient's age to complete this topic Medical Devices Not on file Procedures Procedure Name Priority Date/Time Associated Diagnosis Comments BI MAMMOGRAM SCREENING WITH TOMOSYNTHESIS WITH CAD (BILATERAL) Routine 02/15/2025 9:48 AM EDT Encounter for screening mammogram for malignant neoplasm of breast PAP TEST Routine 04/07/2024 12:00 AM EDT LIPID PANEL Routine 12/09/2023 7:31 AM EDT Pure hypercholesterolemia HEPATITIS C ANTIBODY, QUALITATIVE Routine 06/13/2023 7:25 AM EST Routine screening for STI (sexually transmitted infection) ENDOSCOPY, COLON 11/27/2022 10:03 AM EDT OUTSIDE HIV Routine 02/05/2017 OUTSIDE GLUCOSE FASTING Routine 02/15/2016 from Last 3 Months or Most Recently Relevant to Health Maintenance Results * BI MAMMOGRAM SCREENING WITH TOMOSYNTHESIS WITH CAD (BILATERAL) (02/15/2025 9:48 AM EDT) Anatomical Region Laterality Modality Breast Left, Breast Right, Breast Bilateral Bila teral Mammography 02/16/2025 5:46 PM EDT Impressions 02/16/2025 5:48 PM EDT No mammographic evidence of malignancy in either breast. Annual screening mammography is recommended. BI-RADS 1 NEGATIVE The patient will be notified of the results and recommendations. Narrative 02/16/2025 5:48 PM EDT BI MAMMOGRAM SCREENING WITH TOMOSYNTHESIS WITH CAD (BILATERAL) Additional patient information: Screening. COMPARISON: Comparison is made with relevant prior imaging. Breast composition: The breasts are almost entirely fatty. FINDINGS: No abnormal masses, suspicious calcifications, or other significant findings are identified mammographically in either breast. Procedure Note Kenya Wu MD - 02/16/2025 BI MAMMOGRAM SCREENING WITH TOMOSYNTHESIS WITH CAD (BILATERAL) Additional patient information: Screening. COMPARISON: Comparison is made with relevant prior imaging. Breast composition: The breasts are almost entirely fatty. FINDINGS: No abnormal masses, suspicious calcifications, or other significantfindings are identified mammographically in either breast. IMPRESSION: No mammographic evidence of malignancy in either breast. Annual screening mammography is recommended. BI-RADS 1 NEGATIVE The patient will be notified of the results and recommendations. Savi Lau [facility] MG EXAMS Final Re sult * Pap Test (04/07/2024 12:00 AM EDT) Report [address] [address] Carpenter'S Assistant: Aida Malik MD [facility] [employer] REL[employer] Cytology Report FINAL DIAGNOSIS A. PAP SMEAR (THIN PREP) CE: SPECIMEN ADEQUACY: Satisfactory for evaluation; transformation zone present. INTERPRETATION: NEGATIVE FOR INTRAEPITHELIAL LESION OR MALIGNANCY. Coccobacilli consistent with shift in poppy This specimen was analyzed by the automated ThinPrep Imaging System (Jumio.) and manually rescreened by a inspector hairspring and/or pathologist. Electronically Signed Out By: IRISH Goss(ASCP) IRISH Kingston(ASCP) The Pap test is a screening test primarily for squamous cancers and precursors and has associated false-negative and false-positive results. New technologies such as liquid-based preparations may decrease but will not eliminate all false-negative results. Regular sampling and follow-up of unexplained clinical signs and symptoms are recommended to minimize false negative results. PROCEDURES/ADDENDA HPV Testing (Requested) Ordered Date: 04/08/2024 A. PAP SMEAR (THIN PREP) CE: Human Papilloma Virus Test NEGATIVE for high-risk Human Papilloma Virus types 16, 18, 45 and the Other high risk probe set (Includes 31, 33, 35, 39, 51, 52, 56, 58, 59, 66, 68) Note: Testing performed by MaxTraffic Onclarity HR-HPV analysis. Clinical correlation is advised. This HPV test was performed at [facility], [address] [place] [address]. This test has been FDA approved for both SurePath and ThinPrep cervical cytology specimens. The accuracy and precision of this test for all other specimen sources has been verified in the Cytopathology Laboratory of the [facility] and has not been cleared or approved by the U.S. Food and Drug Administration. Clinical correlation is advised. CLINICAL HISTORY Date of Last Menstrual Period: Not Provided Menstrual History: Post Menopausal Bleeding, PM Other Clinical Conditions: Diagnostic Pap SPECIMEN SOURCE A: PAP SMEAR (THIN PREP) CE Patient Name: DANITA JOYCE : 1975 (Age: 48) Sex: F Institution: [facility] Location: [facility] Date of Collection: 04/07/2024 Date of Reported: 04/13/2024 15:58 Results to: Estefany Lofton [facility] Final Diagnosis A. PAP SMEAR (THIN PREP) CE: SPECIMEN ADEQUACY: Satisfactory for evaluation; transformation zone present. INTERPRETATION: NEGATIVE FOR INTRAEPITHELIAL LESION OR MALIGNANCY. Coccobacilli consistent with shift in poppy This specimen was analyzed by the automated ThinPrep Imaging System (Jumio.) and manually rescreened by a inspector hairspring and/or pathologist. [facility] Results\Inte rpretation A. PAP SMEAR (THIN PREP) CE: Human Papilloma Virus TestNEGATIVE for high-risk Human Papilloma Virus types 16, 18, 45 and the Other high risk probe set (Includes 31, 33, 35, 39, 51, 52, 56, 58, 59, 66, 68)Note: Testing performed by MaxTraffic Onclarity HR-HPV analysis. Clinical correlation is advised. This HPV test was performed at [facility], [address] [place] [address]. This test has been FDA approved for both SurePath and ThinPrep cervical cytology specimens. The accuracy and precision of this test for all other specimen sources has been verified in the Cytopathology Laboratory of the [facility] and has not been cleared or approved by the U.S. Food and Drug Administration. Clinical correlation is advised. [facility] Conversion Type (Conversion Source) 04/07/2024 04/08/2024 9:28 AM EDT Estefany Lofton [facility] CYTOLOGY ORDERABLES Edited Re sult - Final [address] [address] * (ABNORMAL) Lipid panel (12/09/2023 7:31 AM EDT) HDL 57 mg/dL [facility] Comment: Interpretation <40 mg/dL: Low HDL cholesterol (major risk factor for CHD) Greater than or equal to 60 mg/dL: High HDL cholesterol ( negative risk factor for CHD) HDL - cholesterol is affected by a number of factors, e.g. smoking, excerise, hormones, sex and age. CHOLESTEROL 274(H) 0 - 240 mg/dL [facility] TRIGLYCERIDES 121 30 - 160 mg/dL [facility] LDL 193(H) 50 - 129 mg/dL [facility] Comment: LDL levels in terms of risk for coronary heart disease: <100 mg/dL: Optimal 100-129 mg/dL: Near or above optimal 130-159 mg/dL: Borderline high 160-189 mg/dL: High >190 mg/dL: Very High CARDIAC RISK RATIO 4.8(H) 3.3 - 4.4 C [facility] Blood 12/09/2023 7:31 AM EDT 12/09/2023 7:36 AM EDT us Savi Lau CNP LAB BLOOD ORDERABLES Fin al Result Performing Organization Address [facility] Co de Phone Number [address] [address] * Hepatitis C antibody, qualitative (06/13/2023 7:25 AM EST) HCV NON-REACTIV E NON-REACTI VE [facility] Blood 06/13/2023 7:25 AM EST 06/13/2023 7:29 AM EST us Shelly Fernández MD LAB BLOOD ORDERABLES Fin al Result Performing Organization Address [facility]/ZIP Co de Phone Number [address] [address] * ENDOSCOPY, COLON (11/27/2022 10:03 AM EDT) Narrative Transcriptions Michael Christine MD - 11/27/2022 10:03 AM EDT [facility] Patient Name: Danita Pippa Attending MD:: MICHAEL CHRISTINE MD, Procedure Date: 11/27/2022 10:03 AM Date of : 1975 Age: 47 Admit Type: Outpatient Gender: Female Room: [facility] Referring MD: Savi Lau Exam Type: Colonoscopy Indications: Screening for colorectal malignant neoplasm, Thisis the patient's first colonoscopy Medications: Monitored Anesthesia Care Procedure: Informed consent was obtained from the patientafter discussion of the indications, limitations, alternatives, benefits, and risks of the procedure. Risks specifically discussed include but are not limited to medication reactions, missed lesions, bleeding, perforation, or the need for emergent surgery. Throughout the procedure, the patient's blood pressure, pulse, end-tidal CO2, and oxygensaturations were monitored continuously. The Colonoscope was introduced through the anus and advanced to the terminal ileum, with identificationof the appendiceal orifice and IC valve. Thecolonoscopy was performed without difficulty. The patient tolerated the procedure well. The quality of thebowel preparation was good. The terminal ileum, ileocecal valve, appendiceal orifice, and rectum were photographed. Complications: No immediate complications. Estimated blood loss:None. Findings: The terminal ileum appeared normal. Examination of the right colon was repeated in retroflexion and again in NBI. Retroflexion wasalso performed in the rectum. The entire examined colon appeared normal. Impression: - The examined portion of the ileum was normal. - The entire examined colon is normal. - No specimens collected. Recommendation: - Patient has a contact number available for emergencies. The signs and symptoms of potential delayed complications were discussed with thepatient. Return to normal activities tomorrow. Written discharge instructions were provided to thepatient. - Repeat colonoscopy in 10 years for screening purposes. Michael Christine MICHAEL CHRISTINE MD 11/27/2022 11:08:28 AM This report has been signed electronically. Number of Addenda: 0 Note Initiated On: 11/27/2022 10:03 AM Procedure Code(s): --- Professional --- 21854, Colonoscopy, flexible; diagnostic, including collection of specimen(s) by brushing or washing, when performed (separateprocedure) --- Technical --- 51055, Colonoscopy, flexible; diagnostic, including collection of specimen(s) by brushing or washing, when performed (separateprocedure) CPT copyright 2021 [employer]. All rights reserved. The codes documented in this report are preliminary and upon stone cleaner reviewmay be revised to meet current compliance requirements. Procedure Date: 11/27/2022 10:03:[address] [place] [address] [id number] Savi Lau [facility] PROCEDURE ORDERABLES Final Result * OUTSIDE HIV TEST (02/05/2017) HIV - External Neg Historical Provider LAB BLOOD ORDERABLES Anna l Result * Outside Glucose,Fasting (02/15/2016) Glucose, fasting - External 96 65 - 99 mg/dL Historical Provider LAB BLOOD ORDERABLES Anna l Result from Last 3 Months or Most Recently Relevant to Health Maintenance Insurance [place] [facility] Advance Directives For more information, please contact: [phone] (9AM - 5PM [facility], Friday-Friday) Documents on File Type Date Recorded Patient Air Bag Buffer Expl anation Healthcare Proxy 07/19/2024 Care Teams Farm Assistant Relationship Specialty Start Date End Date Savi Lau CNP [address] [facility] 7 [place] [address] PCP - General Family Medicine 07/10/22 Luis Enrique Malcolm MD [address] [address] [place] [address] [email or web address] Historical LMR Provider 05/10/17 Katia Mock MD [address] [place] [address] 7 [place] [address] [email or web address] Historical LMR Provider 05/10/17 Additional Source Comments The information contained in this document represents components of the legal health record. It is not the complete legal health record.[facility]
--- OUTSIDE RECORDS SUMMARY | 2025-05-19 10:02 | XMS_ITS | Data Portability ---
Author Organization [facility] [employer], [employer] Address [address] [facility] [place] [address] Care Team Providers Care Learning Program Manager Name Role Phone UZMA PALMA Neurologist JULITO MEJIA Referring Provider JULITO MEJIA Primary Care Provider [phone] Assessment Encounter Date Assessment Date Assessment LastModified [...] I take all of her questions seriously. > October 30, 2022 discussion pathway toward trigger [...] be a dystonic tremor or focal neck dystonia s pasmodic torticollis. Possibly this serves as [...] trigger point injection sessions. She is agreeable. >>>>>>>>>>>>>>Sadesmitha brii 2022 discussion also: Other migraine treatments in [...] I take all of her questions seriously. > October 30, 2022 discussion pathway toward trigger [...] be a dystonic tremor or focal neck dystonia s pasmodic torticollis. Possibly this serves as [...] I take all of her questions seriously. > October 30, 2022 discussion pathway toward trigger [...] be a dystonic tremor or focal neck dystonia s pasmodic torticollis. Possibly this serves as [...] back, not as vigorous as climbing [place] but still something more than what she [...] I take all of her questions seriously. > October 30, 2022 discussion pathway toward trigger [...] be a dystonic tremor or focal neck dystonia s pasmodic torticollis. Possibly this serves as [...] 13, 2023 - intense migraines, 1/wk, since trigger point injection sessions, and no daily migraines b ut no triggers like music festivals O ct2022: Six moderate migraines over 8 weeks, going away with rizatriptan in 1 hour without side effect, avoiding known triggers. I suggest that she try to enlarge the scope of her activities, cautiously, to see if she can maintain the relative success that she has in reduction of migraines. She might try a hike of [place]. She might try a music event one evening, although not a all day festival yet. She wonders about diet. She has cut out some food that she likes on the possibility that the food relates to migraine but she has not tested the hypothesis. She has read the book: Rigoberto Parker MD, Heal Your Headache, mood has an extensive part about relationship [...] 10% back, not as vigorous as climbing [place] but still something more than what she [...] I take all of her questions seriously. > October 30, 2022 discussion pathway toward trigger [...] be a dystonic tremor or focal neck dystonia s pasmodic torticollis. Possibly this serves as a perpetuating factor for migraines. It is one reason to increase the priority of interventions such as trigger point injections or botulinum toxin injections. >>>>>>>>>>>>>>>>>> >>>>>>>>>>>> PLAN Danita Das May 12 2023 >>>>>>>>>>>>>>>>>> >>>>>>>>>> continue off [...] Orders rizatriptan 10 mg tablet 2022 023 [facility], [address] [facility], [place], [address], 12:39:38 Patient TargetsNo targets recorded. Patient Instructions [...] management mrossen Not available 02/13/2023 08:04:51 03/13/2023 [id number] PREVIOUS MEDICATIONS Aimovig, no help, seven migraines [...] management mrossen Not available 03/13/2023 12:13:02 05/12/2023 [id number] PREVIOUS MEDICATIONS Aimovig, no help, seven migraines [...] trigger point injection completed Antolin Mcdonald MD [address] [place] [address] [place], [address], [facility] [place] [facility] Neu[facility] 05/12/2023 16:41:18 3 trigger point injection completed Antolin Mcdonald MD [address] [place] [address] [place] Kraus, [address], [facility] [place] [facility] Neurology [facility] 03/13/2023 12:15:13 3 trigger point injection completed Antolin Mcdonald MD [address] [place] [address] [place] Kraus, [address], [facility] [place] [facility] 02/13/2023 08:20:30 3 trigger point injection completed Antolin Mcdonald MD [address] [place] [address] ANNEL[place] Kraus, [address], [facility] [place] [facility] 02/12/2023 08:24:11 3 trigger point injection completed Antolin Mcdonald MD [address] [place], [place] [address], [address], [facility] [place] [facility] Neurology [facility] 02/11/2023 09:09:30 3 trigger point injection completed Antolin Mcdonald MD [address] [place] [address] ANNELIES[place] Kraus, [address], [facility] [place] [facility] Neurology [facility] 02/06/2023 08:45:09 07/19/202 3 trigger point injection completed Antolin Mcdonald MD [address] [place] [address], ANNELIES[place] Kraus, [address], [facility] 02/06/2023 08:55:42 3 trigger point injection completed Antolin Mcdonald MD [address] [place] [address], [place]ELIES[place] Kraus, [address], [facility] 02/06/2023 08:54:06 3 trigger point injection completed Antolin Mcdonald MD [address] [place] [address], ANNELIES[place] Kraus, [address], [facility] 02/06/2023 08:52:42 3 trigger point injection completed Antolin cMdonald MD [address] [place] [address], [place], [address], [facility] 02/06/2023 08:50:42 3 trigger point injection completed Antolin Mcdonald MD [address] [place] [address], ANNELIES[place] Kraus, [address], [facility] 02/06/2023 08:47:24 3 trigger point injection completed Antolin Mcdonald MD [address] [place] [address] [place]EL[place] Kraus, [address], [facility] 02/06/2023 08:46:13 Imaging Results None recorded. Procedure Notes None recorded. Medical Equipment None Reported. Allergies Allergen ID Allergen Name Allergen Category Reaction Reaction Severity Criticality Documentation Date Start Date Code Code System Note Provider Name and Address Organization Details Recorded Time 2407 Product containin g penicilli n (product) medicatio n Not available Not available Not available 09/30/2022 23286 8001 SNOMED [facility] 09:05:28 2408 nitrofura ntoin medicatio n Not available Not available Not available 09/30/2022 7454 RxNorm [facility] 3 09:05:39 Medications Name Sig Start Date [...] Tobacco Smoking Status Former Smoker [facility] 09/30/2022 09:06:59 What Is Your Level Of Caffeine Consumption? None Information not available 09/30/2022 What Is The Highest Grade Or Level Of School You Have Completed Or The Highest Degree You Have Received? US57779-4 Information not available 09/30/2022 Which Of Your Hands Is Dominant? Right Information not available 09/30/2022 What Is Your Relationship Status? Information not available 09/30/2022 Sex: Unknown Functional Status Question Answer Note LastModified by Organization D etails LastModified Time What is your level of alcohol consumption? None Information not available 09/30/2022 Mental Status None recorded. 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 Torticollis 04575846 M43 .6 8491 Antolin Mcdonald MD [facility] [address] [place] [address] [place] [address] 10/30/2022 12:56:16 10/30/2022 18:14:52 Migraine without aura 90884769 G43.009 Menstrual migraine 33386 000 G43.829 Dystonia 42961706 G24.3 Torticollis 14219567 M43 .6 8996 Antolin Mcdonald MD [facility] [address] [place] [address] [place] [address] 12/03/2022 14:35:02 12/03/2022 16:15:10 Migraine without aura 66403545 G43.009 Menstrual migraine 04217 000 G43.829 Dystonia 51374378 G24.3 Torticollis 69406714 M43 .6 9310 Antolin Mcdonald MD [facility] [address] [place] [address] [place] [address] 01/06/2023 10:33:38 01/06/2023 11:02:18 Migraine without aura 45523135 G43.009 Menstrual migraine 97780 000 G43.829 Dystonia 60039767 G24.3 Torticollis 14740432 M43 .6 9631 Antolin Mcdonald MD [facility] [address] [place] [address] [place] [address] 01/29/2023 07:55:28 01/29/2023 08:29:45 Migraine without aura 53721149 G43.009 Menstrual migraine 08558 000 G43.829 Dystonia 00762970 G24.3 Torticollis 99100759 M43 .6 9636 Antolin Mcdonald MD [facility] [address] [place] [address] Marcelino FARRISNAYANAANNELIESE ESCUDERO [address] 01/28/2023 08:23:19 01/28/2023 09:46:48 Migraine without aura 54112903 G43.009 Menstrual migraine 78786 000 G43.829 Dystonia 20160152 G24.3 Torticollis 20232905 M43 .6 9684 Antolin Mcdonald MD [facility] [address] [place] [address] Marcelino [place] [address] 01/30/2023 07:56:09 01/30/2023 08:37:57 Migraine without aura 00583474 G43.009 Menstrual migraine 85934 000 G43.829 Dystonia 55468781 G24.3 Torticollis 38366692 M43 .6 9710 Antolin Mcdonald MD [facility] [address] [place] [address] Marcelino [place] [address] 02/03/2023 07:53:54 02/03/2023 09:15:13 Migraine without aura 80314768 G43.009 Menstrual migraine 23379 000 G43.829 Dystonia 56365880 G24.3 Torticollis 85764402 M43 .6 9721 Antolin Mcdonald MD [facility] [address] [place] [address] Marcelino [place] [address] 02/04/2023 07:56:36 02/04/2023 09:31:27 Migraine without aura 36798362 G43.009 Menstrual migraine 59603 000 G43.829 Dystonia 66061452 G24.3 Torticollis 76613481 M43 .6 9747 Antolin Mcdonald MD [facility] [address] [place] [address] Marcelino ANNELIESE KRAUS [address] 4 02/05/2023 08:05:02 02/05/2023 08:33:08 Migraine without aura 28533674 G43.009 Menstrual migraine 88497 000 G43.829 Dystonia 23601087 G24.3 Torticollis 75795778 M43 .6 9770 Antolin Mcdonald MD [facility] [address] [place] [address] Marcelino FARRISNAYANAANNELIESE ESCUDERO [address] 4 02/06/2023 08:22:56 02/06/2023 09:13:14 Migraine without aura 28179392 G43.009 Menstrual migraine 71027 000 G43.829 Dystonia 21890122 G24.3 Torticollis 01752097 M43 .6 9850 Antolin Mcdonald MD [facility] [address] [place] [address] Marcelino FARRISNAYANAANNELIESE ESCUDERO [address] 4 02/11/2023 08:18:02 02/11/2023 09:23:48 Migraine without aura 97814698 G43.009 Menstrual migraine 53547 000 G43.829 Dystonia 21740239 G24.3 Torticollis 82517923 M43 .6 9863 Antolin Mcdonald MD [facility] [address] [place] [address] Marcelino ANNELIESE KRAUS [address] 02/12/2023 07:56:09 02/12/2023 09:08:18 Migraine without aura 21833972 G43.009 Menstrual migraine 42459 000 G43.829 Dystonia 34802701 G24.3 Torticollis 83527292 M43 .6 9885 Antolin Mcdonald MD [facility] [address] [place] [address] L[place] Benson [place]US [address] 02/13/2023 08:01:30 02/13/2023 09:07:16 Migraine without aura 12075820 G43.009 Menstrual migraine 01829 000 G43.829 Dystonia 72399234 G24.3 Torticollis 08900503 M43 .6 81291 Antolin Mcdonald MD [facility] [address] [place] [address] Marcelino ANNELIESE KRAUS [address] 03/13/2023 12:01:00 03/13/2023 17:02:22 Migraine without aura 45610320 G43.009 Menstrual migraine 81201 000 G43.829 Dystonia 98164532 G24.3 Torticollis 97025897 M43 .6 94791 Antolin Mcdonald MD [facility] [address] [place] [address] Marcelino ANNELIESE KRAUS [address] 05/12/2023 16:31:48 05/13/2023 09:46:10 Migraine without aura 74793148 G43.009 Menstrual migraine 68524 000 G43.829 Dystonia 60188278 G24.3 Torticollis 53314891 M43 .6 Health Concerns Section Related Observation LastModified by Organization Detai ls LastModified Time None Recorded Concern Status LastModified by Organization Details LastModified Time None Recorded Advance Directives Directive None Recorded Payers Insurance Date Sequence Insurance Name Policy Number Policy Zepeda Covered Member ID Zepeda Member ID Guarantor Name 05/22/2023 1 [facility] [employer] - [employer] [facility] TYPE I (HMO) [id number] Danita Das [id number] 01 Danita Das Notes Date Note Type Note Provider Name and Address Organization Details Recorded Time 02/11/2023 text/html Neurology follow-up of frequent episodic migraine without aura. History [...] normal span of time for one monthly shot s he is 4 days past that. [...] toward the end of 2021, it stopped helping b ad migraines returned to approximately the [...] she quit cigarettes thinking that would help sufficiently i t did not. She did not know about migraines at that age. Understanding emerged in her 30s although the migraines continue to bother her.Migraine begins with brain fog d ifficulty thinking, and frustration which she [...] eat what she wants. Antolin Mcdonald MD [address] [place] [address] [place], [address], [facility] [place] [facility] Neurology [facility] 02/11/2023 09:10:31 02/12/2023 text/html Neurology follow-up of frequent episodic migraine without aura. History [...] normal span of time for one monthly shot s he is 4 days past that. [...] toward the end of 2021, it stopped helping b ad migraines returned to approximately the [...] she quit cigarettes thinking that would help sufficiently i t did not. She did not know about migraines at that age. Understanding emerged in her 30s although the migraines continue to bother her.Migraine begins with brain fog d ifficulty thinking, and frustration which she [...] eat what she wants. Antolin Mcdonald MD [address] [place] [address], [address], [facility] [place] [facility] Neurology [facility] 02/12/2023 08:25:43 02/13/2023 text/html Neurology follow-up of frequent episodic migraine without aura. History [...] normal span of time for one monthly shot s he is 4 days past that. [...] toward the end of 2021, it stopped helping b ad migraines returned to approximately the [...] she quit cigarettes thinking that would help sufficiently i t did not. She did not know about migraines at that age. Understanding emerged in her 30s although the migraines continue to bother her.Migraine begins with brain fog d ifficulty thinking, and frustration which she [...] eat what she wants. Antolin Mcdonald MD [address] [place] [address] [place], [address], [facility] [place] [facility] Neurology [facility] 02/13/2023 08:21:01 03/13/2023 text/html Neurology follow-up of frequent episodic migraine without aura. History [...] life. She did try to [place] but the stiffness of it associated with [...] normal span of time for one monthly shot s he is 4 days past that. [...] toward the end of 2021, it stopped helping b ad migraines returned to approximately the [...] she quit cigarettes thinking that would help sufficiently i t did not. She did not know about migraines at that age. Understanding emerged in her 30s although the migraines continue to bother her.Migraine begins with brain fog d ifficulty thinking, and frustration which she [...] eat what she wants. Antolin Mcdonald MD [address] [place] [address] [place]EL[place] Kraus, [address], [facility] [place] [facility] Neurology [facility] 03/13/2023 12:39:54 05/12/2023 text/html Neurology follow-up of frequent episodic migraine without aura. History [...] No vigorous activities such as [place]; no music festivals.I had recorded from all [...] life. She did try to climb [place] but the stiffness of it associated with [...] normal span of time for one monthly shot s he is 4 days past that. [...] toward the end of 2021, it stopped helping b ad migraines returned to approximately the [...] she quit cigarettes thinking that would help sufficiently i t did not. She did not know about migraines at that age. Understanding emerged in her 30s although the migraines continue to bother her.Migraine begins with brain fog d ifficulty thinking, and frustration which she [...] eat what she wants. Antolin Mcdonald MD [address] [place] [address] [place], [address], [facility] [place] [facility] Neurology [facility] 05/12/2023 17:18:06 OBGyn Episode No OBEpisode recorded.
--- OUTSIDE RECORDS SUMMARY | 2025-05-19 10:03 | XMS_ITS | Encounter Summary ---
Author Organization [facility] Address [address] [place] [address] Phone Care Team Providers Care Electric Motor Winder Name Role Phone Luis Enrique Malcolm MD Unavailable [phone] Katia Mock MD Unavailable [phone] Savi Lau [facility] Primary Care Provider + Encounter Details Date Type Department Care Team (Late st Contact Info) Description 07/19/2024 Procedure Pass OR Admitting Dept - Virtual Department [address] [place] [address] Social History Tobacco Use Types Packs/Day Years [...] high school, GED, job training, learning the Uz[place] language, technical skills, or developing parenting skills)? [...] your housing situation today? I have tammy sing 06/07/2024 How many times have you move [...] Description 06/08/2025 10:00 AM EST Office Visit [facility] [address] [place] [address] Estefany Lofton, DEMOLITION EXPERT 234 [facility] 7 [place] [address] [email or web address] 11/09/2025 9:30 AM EDT Office Visit [facility] [address] [place] [address] Estefany Lofton, DEMOLITION EXPERT [address] [facility] 7 [place] [address] [email or web address] documented as of this encounter Visit Diagnoses Not on filedocumented in this encounter Additional Health Concerns Assessment Noted Time PHQ-9 Depression Total Score: 9 06/07/20 24 8:23 AM EST PHQ-2 Depression Total Score: 2 06/07/20 24 8:23 AM EST documented as of this encounter Care Teams Electric Motor Winder Relationship Specialty Start Date End Date Savi Lau CNP [address] [place] [address] [place] [address] [email or web address] PCP - General Family Medicine 07/10/22 Luis Enrique Malcolm MD [address] [place] [address] [email or web address] Historical LMR Provider 05/10/17 Katia Mock MD [address] [place], [place] [address] [address] [email or web address] Historical LMR Provider 05/10/17 documented as of this encounter Additional Source Comments The information contained in this document represents components of the legal health record. It is not the complete legal health record.[facility]
--- OUTSIDE RECORDS SUMMARY | 2025-05-19 10:03 | XMS_ITS | Encounter Summary ---
Author Organization [facility] Address [address] [place] [address] Phone Care Team Providers Care Drying Room Supervisor Name Role Phone Luis Enrique Malcolm MD Unavailable [phone] Katia Mock MD Unavailable [phone] Savi Lau POSTAL WORKER Primary Care Provider + Encounter Details Date Type Department Care Team (Late st Contact Info) Description 09/30/2022 Procedure Pass [address] [address] Social History Tobacco Use Types Packs/Day Years Used Date Smoking Tobacco: Former Smokeless Tobacco: Never Alcohol Use Standard Drinks/Week Comments Not Currently 0 (1 standard drink = 0.6 oz pur e alcohol) Child or Family Care Answer Date Record ed Do you have problems with on e of the following making it difficult for you to work, study, or receive health care? No 05/29/2022 Education Answer Date Recorded Are you interested in help w ith more adult education (for example, completing high school, GED, job training, learning the Urdu language, technical skills, or developing parenting skills)? No 05/29/2022 Food Answer Date Recorded Within the past 6 months we worried whether our food would run out before we got money to buy more. Never True 05/29/2022 Within the past 6 months the food we bought just didn't last and we didn't have enough money to get more. Never True Residential Stability Answer Date Recor ded What is your housing situation today? I have tammy shah 05/29/2022 How many times have you move d in the past 12 months? Zero (I did not move) 05/29/2022 Paying for Meds Answer Date Recorded Do you have trouble paying for medicines? No 05/29/2022 Paying Utility Bills Answer Date Record ed Do you have trouble paying your heating or elect ricity bill? No 05/29/2022 Transportation Answer Date Recorded Has the lack of transportati on kept you from medical appointments or from getting medications? No 05/29/2022 Unemployment Answer Date Recorded Are you currently unemployed or working on a part-time or temporary basis, and looking for work? No 05/29/2022 Comments No Sex and Gender Information Value Date Recorded Sex Assigned at Not on file Legal Sex Female 5:21 PM EST Gender Identity Genderqueer/Queer 12/08/2019 8:3 9 AM EDT Sexual Orientation Not on file documented as of this encounter Plan of Treatment Upcoming Encounters Date Type Department Care Team (Late st Contact Info) Description 06/08/2025 10:00 AM EST Office Visit [address] [address] Estefany Lofton, [address] [address] [email or web address] 11/09/2025 9:30 AM EDT Office Visit [address] [address] Estefany Lofton, [address] [address] [email or web address] documented as of this encounter Visit Diagnoses Not on filedocumented in this encounter Additional Health Concerns Assessment Noted Time PHQ-2 Depression Total Score: 1 05/29/20 9:53 AM EST documented as of this encounter Care Teams Drying Room Supervisor Relationship Specialty Start Date End Date Savi Lau ALEC Espinosa [address] [facility] 7 [place] [address] [email or web address] PCP - General Family Medicine 07/10/22 Luis Enrique Malcolm MD 234 [facility] 7 [place] [address] [email or web address] Historical LMR Provider 05/10/17 Katia Mock MD [address] [facility] 7 [place] [address] [email or web address] Historical LMR Provider 05/10/17 documented as of this encounter Additional Source Comments The information contained in this document represents components of the legal health record. It is not the complete legal health record.[facility]
--- OUTSIDE RECORDS SUMMARY | 2025-05-19 10:03 | XMS_ITS | Encounter Summary ---
Author Organization [facility] Address [address] [facility] [address] [place] [address] Phone Care Team Providers Care Automation Control Technician Name Role Phone Katia Mock MD Primary Care Provider Nancy Jalloh DO Unavailable Anne Will MANAGER HELPDESK Unavailable Trudy Leavitt MANAGER HELPDESK Unavailable Estefany Lofton CLINICAL CYTOPATHOLOGIST Unavailable Luis Enrique Malcolm MD Unavailable [phone] Katia Mock MD Unavailable Nik Malcolm MD Unavailable Savi Lau CNP Primary Care Provider + Katia Mock MD Primary Care Provider Alejandro Heath MD Primary Care Provider Savi Lau INSTRUCTIONAL DESIGN TECHNOLOGIST Primary Care Provider + Encounter Details Date Type Department Care Team (Late st Contact Info) Description 03/23/2021 Procedure Pass [facility], [address] [place] [address] Social History Tobacco Use Types Packs/Day Years [...] high school, GED, job training, learning the Greek language, technical skills, or developing parenting skills)? [...] Description 06/08/2025 10:00 AM EST Office Visit [facility] [address] [facility] [place] [address] Estefany Lofton FNP [address] [facility], [address] [place] [address] 11/09/2025 9:30 AM EDT Office Visit [facility] [address] [facility] [place] [address] Estefany Lofton, CLINICAL CYTOPATHOLOGIST [address] [facility], [address] [place] [address] [email or web address] documented as of this encounter Visit Diagnoses Not on filedocumented in this encounter Additional Health Concerns Assessment Noted Time PHQ-2 Depression Total Score: 0 04/23/20 19 11:24 AM EDT documented as of this encounter Care Teams Automation Control Technician Relationship Specialty Start Date End Date Katia Mock MD [address] [place] [address], [facility] 7 [place] [address] [email or web address] PCP - General 05/05/17 06/06/22 Savi Lau, ALEC [address] [place] [address] 7 [place] [address] [email or web address] PCP - General Family Medicine 06/07/22 06/18/22 Katia Mock MD [address] [place] [address] 7 [place] [address] [email or web address] PCP - General Family Medicine 06/19/22 06/20/22 Alejandro Heath MD [address] [place] [address] 7 [place] [address] [email or web address] PCP - General Family Medicine 06/21/22 07/09/22 Savi Lua, ALEC [address] [place] [address] 7 [place] [address] [email or web address] PCP - General Family Medicine 07/10/22 Nancy Jalloh DO [address] [place] [address] 7 [place] [address] [email or web address] Historical LMR Provider 05/10/17 07/28/21 Anne Will NP [address] [place] [address] Historical LMR Provider 05/10/17 2 Trudy Leavitt NP [address] [place] [address] [email or web address] Historical LMR Provider 05/10/17 2 Estefany Lofton FNP [address] [place] [address] 7 [place] [address] [email or web address] Historical LMR Provider 05/10/17 07/28/21 Luis Enrique Malcolm MD [address] [place] [address] 7 [place] [phone] [email or web address] Historical LMR Provider 05/10/17 Katia Mock MD [address] [place] [address] 7 [place] [address] [email or web address] Historical LMR Provider 05/10/17 Nik Malcolm MD [address] [place] [address] [address] [place] [phone] [email or web address] Historical LMR Provider 05/10/17 07/28/21 documented as of this encounter Additional Source Comments The information contained in this document represents components of the legal health record. It is not the complete legal health record.[facility]
--- OUTSIDE RECORDS SUMMARY | 2025-05-19 10:03 | XMS_ITS | Encounter Summary ---
Author Organization [facility] Address [address] [place] [address] Phone Care Team Providers Care Communications Senior Associate Name Role Phone Luis Enrique Malcolm MD Unavailable [phone] Katia Mock MD Unavailable [phone] Savi Lau CONFECTIONERY DROPS MACHINE OPERATOR Primary Care Provider + Encounter Details Date Type Department Care Team (Late st Contact Info) Description 11/27/2022 Procedure Pass [facility] Admitting Dept Virtual Department [address] [place] [address] Social History Tobacco Use Types Packs/Day Years [...] high school, GED, job training, learning the Comoran language, technical skills, or developing parenting skills)? [...] Upcoming Encounters Date Type Department Care Team ([facility] Contact Info) Description 06/08/2025 10:00 AM EST Office Visit [address] [address] Estefany Lofton, [address] [address] 11/09/2025 9:30 AM EDT Office Visit [address] [address] Estefany Lofton, [address] [address] documented as of this encounter Visit Diagnoses Not on filedocumented in this encounter Additional Health Concerns Assessment Noted Time PHQ-2 Depression Total Score: 1 05/29/20 22 9:53 AM EST documented as of this encounter Care Teams Communications Senior Associate Relationship Specialty Start Date End Date Savi Lau EspinosaALEC koch 234 [facility] 7 [place] [address] [email or web address] PCP - General Family Medicine 07/10/22 Luis Enrique Malcolm MD [address] [place] [address] [email or web address] Historical LMR Provider 05/10/17 Katia Mock MD 234 [facility] 7 [place] [address] [email or web address] Historical LMR Provider 05/10/17 documented as of this encounter Additional Source Comments The information contained in this document represents components of the legal health record. It is not the complete legal health record.[facility]
--- OUTSIDE RECORDS SUMMARY | 2025-05-19 10:03 | XMS_ITS | Encounter Summary ---
Author Organization [facility] Address [address] [place] [address] Phone Care Team Providers Care Director Post Name Role Phone Luis Enrique Malcolm MD Unavailable [phone] Katia Mock MD Unavailable [phone] Savi Lau [facility] Primary Care Provider + Encounter Details Date Type Department Care Team (Late st Contact Info) Description 08/20/2024 Procedure Pass [address] [address] Social History Tobacco Use Types Packs/Day Years Used Date Smoking Tobacco: Former Cigarettes 0 08/09/1986 - 2009 Smokeless Tobacco: Never Alcohol Use Standard Drinks/Week [...] high school, GED, job training, learning the Singaporean language, technical skills, or developing parenting skills)? [...] Description 06/08/2025 10:00 AM EST Office Visit [facility] [address] [place] [address] Estefany Lofton, DRIVER TRAINER 234 [facility] 7 [place] [address] [email or web address] 11/09/2025 9:30 AM EDT Office Visit [facility] 234 [place] [address] Estefany Lofton, DRIVER TRAINER 234 [facility] 7 [place] [address] [email or web address] documented as of this encounter Visit Diagnoses Not on filedocumented in this encounter Additional Health Concerns Assessment Noted Time PHQ-9 Depression Total Score: 9 06/07/20 24 8:23 AM EST PHQ-2 Depression Total Score: 2 06/07/20 24 8:23 AM EST documented as of this encounter Care Teams Director Post Relationship Specialty Start Date End Date Savi Lau CNP [address] [address] [email or web address] PCP - General Family Medicine 07/10/22 Luis Enrique Malcolm MD [address] [place] [phone] [email or web address] Historical LMR Provider 05/10/17 Katia Mock MD [address] [place] [address] [place] [address] [email or web address] Historical LMR Provider 05/10/17 documented as of this encounter Additional Source Comments The information contained in this document represents components of the legal health record. It is not the complete legal health record.[facility]
--- OUTSIDE RECORDS SUMMARY | 2025-05-19 10:03 | XMS_ITS | Encounter Summary ---
Author Organization [facility] Address [address] [place] [address] Phone Care Team Providers Care Farm Product Purchaser Name Role Phone Luis Enrique Malcolm MD Unavailable [phone] Katia Mock MD Unavailable [phone] Savi Lau CNP Primary Care Provider + Encounter Details Date Type Department Care Team (Latest Contact Info) Description 09/30/2022 Transcribe Orders Virtual Department [address] [place] [address] Savi Lau, OUTSIDE SALES ACCOUNT MANAGER [address] [facility], [address] [place], [place] [address] [email or web address] Breast screening (Primary Dx) Social History Tobacco Use Types Packs/Day Years [...] high school, GED, job training, learning the Niuean language, technical skills, or developing parenting skills)? [...] housing situation today? I have tammy sing 05/29/2022 How many times have you move [...] Upcoming Encounters Date Type Department Care Team ([facility] st Contact Info) Description 06/08/2025 10:00 AM EST Office Visit [address] [address] Estefany Lofton, [address] [address] 11/09/2025 9:30 AM EDT Office Visit [address] [address] Estefany Lofton, [address] [address] documented as of this encounter Results * BI MAMMOGRAM SCREENING WITH TOMOSYNTHESIS WITH CAD (BILATERAL) (10/08/2022 4:06 PM EDT) Anatomical Region Laterality Modality Breast Left, Breast Right, Breast Bilateral Bila teral Mammography 10/09/2022 8:58 AM EDT Impressions 10/09/2022 9:02 AM EDT BILATERAL BREASTS: No suspicious interval change. No evidence of malignancy. Normal interval follow-up is recommended. BI-RADS: BI-RADS CATEGORY: 2 - Benign finding. DENSITY: The breast tissue is almost entirely fat. Narrative 10/09/2022 9:02 AM EDT History: Breast cancer screening STUDY: Bilateral screening mammography with tomosynthesis and CAD TECHNIQUE: Bilateral full-field digital screening mammography is obtained and read in conjunction with computer-aided detection. Tomosynthesis as well as 2-D C view imaging were obtained. COMPARISON: Comparison made with multiple prior, most recent 09/12/2021, and most remote 02/24/2017. FINDINGS: Scattered benign calcifications and discrete anterior medial retroareolar left breast asymmetry are without suspicious interval change. No suspicious mass, concerning group of calcifications or suspicious asymmetry identified. Procedure Note Moncho Velasquez MD - 10/09/2022 History: Breast cancer screening STUDY: Bilateral screening mammography with tomosynthesis and CAD TECHNIQUE: Bilateral full-field digital screening mammography is obtainedand read in conjunction with computer-aided detection. Tomosynthesis aswell as 2-D C view imaging were obtained. COMPARISON: Comparison made with multiple prior, most recent 09/12/2021,and most remote 02/24/2017. FINDINGS: Scattered benign calcifications and discrete anterior medialretroareolar left breast asymmetry are without suspicious interval change.No suspicious mass, concerning group of calcifications or suspiciousasymmetry identified. IMPRESSION: BILATERAL BREASTS: No suspicious interval change. No evidence ofmalignancy. Normal interval follow-up is recommended. BI-RADS: BI-RADS CATEGORY: 2 - Benign finding. DENSITY: The breast tissue is almost entirely fat. Savi Lau OUTSIDE SALES ACCOUNT MANAGER IMG MG EXAMS Final Re sult documented in this encounter Visit Diagnoses Diagnosis Breast screening- Primary Breast screening, unspecified Breast screening Breast screening, unspecified documented in this encounter Additional Health Concerns Assessment Noted Time PHQ-2 Depression Total Score: 1 05/29/20 9:53 AM EST documented as of this encounter Care Teams Farm Product Purchaser Relationship Specialty Start Date End Date Savi ALEC Espinosa [address] [facility], [facility] 7 [place] [address] [email or web address] PCP - General Family Medicine 07/10/22 Luis Enrique Malcolm MD [address] [place] [address] [place] [phone] [email or web address] Historical LMR Provider 05/10/17 Katia Mock MD [address] [place] [address] 7 [place] [address] [email or web address] Historical LMR Provider 05/10/17 documented as of this encounter Additional Source Comments The information contained in this document represents components of the legal health record. It is not the complete legal health record.[facility]
--- OUTSIDE RECORDS SUMMARY | 2025-05-19 10:03 | XMS_ITS | Encounter Summary ---
Author Organization [facility] Address [address] [facility] [address] [place] [address] Phone Care Team Providers Care Service Parts Driver Name Role Phone Katia Mock MD Primary Care Provider [phone] Nancy Jalloh DO Unavailable Anne Will NEWS PRODUCTION ASSISTANT Unavailable Trudy Leavitt NEWS PRODUCTION ASSISTANT Unavailable Estefany Lofton CHILD CARE CENTRE DIRECTOR Unavailable Luis Enrique Malcolm MD Unavailable [phone] Katia Mock MD Unavailable Nik Malcolm MD Unavailable Savi Lau CNP Primary Care Provider + Katia Mock MD Primary Care Provider Alejandro Heath MD Primary Care Provider Savi Lau GEOGRAPHIC ANALYST Primary Care Provider + Encounter Details Date Type Department Care Team (Late st Contact Info) Description 06/12/2021 Procedure Pass [place] [facility], Mammography- [address] [address] Social History Tobacco Use Types Packs/Day Years Used Date Smoking Tobacco: Former Smokeless Tobacco: Never Alcohol Use Standard Drinks/Week Comments Yes 0 (1 standard drink = 0.6 oz pur e alcohol) Child or Family Care Answer Date Record ed Do you have problems with on e of the following making it difficult for you to work, study, or receive health care? No 06/12/2021 Education Answer Date Recorded Are you interested in help w ith more adult education (for example, completing high school, GED, job training, learning the Telugu language, technical skills, or developing parenting skills)? No 06/12/2021 Are you concerned about learning? Not on file 06/12/2021 Food Answer Date Recorded Within the past 6 months we worried whether our food would run out before we got money to buy more. Never True 06/12/2021 Within the past 6 months the food we bought just didn't last and we didn't have enough money to get more. Never True Paying for Meds Answer Date Recorded Do you have trouble paying for medicines? No 06/12/2021 Paying Utility Bills Answer Date Record ed Do you have trouble paying your heating or elect ricity bill? No 06/12/2021 Transportation Answer Date Recorded Has the lack of transportati on kept you from medical appointments or from getting medications? No 06/12/2021 Comments No Sex and Gender Information Value Date Recorded Sex Assigned at Not on file Legal Sex Female 5:21 PM EST Gender Identity Genderqueer/Queer 12/08/2019 8:3 9 AM EDT Sexual Orientation Not on file documented as of this encounter Plan of Treatment Upcoming Encounters Date Type Department Care Team (Late st Contact Info) Description 06/08/2025 10:00 AM EST Office Visit [facility] [address] [place] [address] Estefany Lofton FNP 234 [facility], [address] [place] [address] 11/09/2025 9:30 AM EDT Office Visit [facility] 234 [facility] [place] [address] Estefany Lofton FNP 234 [facility] 7 [place] [address] [email or web address] documented as of this encounter Visit Diagnoses Not on filedocumented in this encounter Additional Health Concerns Assessment Noted Time PHQ-2 Depression Total Score: 1 06/12/20 21 9:16 AM EST documented as of this encounter Care Teams Service Parts Driver Relationship Specialty Start Date End Date Katia Mock MD [address] [place] [address] 7 [place] [id number] [email or web address] PCP - General 05/05/17 06/06/22 Savi Lau, ALEC [address] [place] [address] [place] [address] [email or web address] PCP - General Family Medicine 06/07/22 06/18/22 Katia Mock MD [address] [place] [address] [place] [address] [email or web address] PCP - General Family Medicine 06/19/22 06/20/22 Alejandro Heath MD [address] [place] [address] [place] [address] [email or web address] PCP - General Family Medicine 06/21/22 07/09/22 Savi Lau, ALEC [address] [place] [address] [place]ast [address] [email or web address] PCP - General Family Medicine 07/10/22 Nancy Jalloh DO [address] [place] [address] 7 [place] [address] [email or web address] Historical LMR Provider 05/10/17 07/28/21 Anne Will NP [address] [place] [address] Historical LMR Provider 05/10/17 2 Trudy Leavitt NP [address] [place] [address] [email or web address] Historical LMR Provider 05/10/17 2 Estefany Lofton FNP [address] [place] [address] 7 [place] [address] [email or web address] Historical LMR Provider 05/10/17 07/28/21 Luis Enrique Malcolm MD [address] [place] [address] 7 [place] [phone] [email or web address] Historical LMR Provider 05/10/17 Katia Mock MD [address] [place] [address] 7 [place] [address] [email or web address] Historical LMR Provider 05/10/17 Nik Malcolm MD [address] [place], [place] [address] [place] [phone] [email or web address] Historical LMR Provider 05/10/17 07/28/21 documented as of this encounter Additional Source Comments The information contained in this document represents components of the legal health record. It is not the complete legal health record.[facility]
== END 2025-05-19 10:26 | disposition home or self-care (01) ==
LOC: HO.HSMS 09:01
PROVIDERS: PCP Nurse Practitioner Primary Care; Visit Provider Nurse Practitioner Family
DX: G43.719 Chronic migraine without aura, intractable, without status migrainosus (principal); G43.109 Migraine with aura, not intractable, without status migrainosus; G47.33 Obstructive sleep apnea (adult) (pediatric); G24.3 Spasmodic torticollis; H81.10 Benign paroxysmal vertigo, unspecified ear
CPT/HCPCS: 99214